=== PATIENT | male | born 1960 | race Caucasian/White ===

== ENCOUNTER 2018-02-23 12:16 | Observation (INO) | payer OTHER ==
[~2018-02-23] VITALS: Ht 182.9 cm; Wt 81.5 kg
[~2018-02-23 12:16] MED LIST: CYCL-36 PO; HYDR-3533 PO; PRED20 PO
[2018-02-23 12:23] VITALS: BP 162/82; PULSE 95; RESP 18; TEMP 98.3; O2SAT 100
[2018-02-23] MEDS ORDERED: KETOROLAC TROMETHAMINE 30 MG/ML (IVP) VIAL IV PUSH ONE (12:45)
[2018-02-23] MEDS ORDERED: SODIUM CHLOR 0.9% 1000 ML INJ 1,000 ML IV ONE ×2 (12:45→14:30)
[2018-02-23] MEDS ORDERED: CLINDAMYCIN INJ 600 MG in SODIUM CHLORIDE 0.9% INJ 100 ML IV ONE (12:45)
[2018-02-23] MEDS ORDERED: DOXYCYCLINE HYCLATE 100 MG CAP PO ONE (12:45)
[2018-02-23] MEDS ORDERED: LEVOFLOXACIN 750 MG PREMIX INJ 150 ML IV ONE (12:45)
[2018-02-23] MEDS ORDERED: CLINDAMYCIN 600 MG/NS PREMIX 50 ML IV ONE (12:45)
--- NOTE | 2018-02-23 12:46 | PD ---
HPI Chief Complaint: Bite or Sting Time Seen by Provider: 12:29 Travel History International Travel<30 days: No Contact w/Intl Traveler<30days: No Traveled to known affect area: No History of Present Illness HPI 57-year-old male presents to the emergency department for evaluation of skin infection to the left ankle/foot. Patient states that on , 4 days ago, he was stung by a stingray the left ankle. He was at the [place]. He states that he immediately put his foot in the salt water to help with the pain. Patient states that it was progressively getting more painful, erythematous, swollen. He does state that he feels slightly better today. He denies any known fevers, but did have a possible fever 2 nights ago. Patient denies any other symptoms or complaints. He has history of chronic back pain. He does not take any prescribed medications. Patient states the pain is 8/10 when he stands up, alleviated with keeping the foot still. Pain is aching and throbbing in nature. Patient states that he went to his primary care physician' s office, Dr. Perez, today and was referred to the emergency department. Moderate severity. [facility] Past Medical History Diminished Hearing: Yes Past Surgical History Appendectomy: Yes ([employer]) Social History Alcohol Use: Yes (2 HIGHBALLS DAILY) Tobacco Use: Yes (1/2 PACK DAILY) Substance Use: Yes Allergies-Medications (Allergen,Severity, Reaction): Coded Allergies: No Known Allergies (Unverified Allergy, Unknown, 02/23/18) Reported Meds & Prescriptions Reported Meds & Active Scripts Active No Active Prescriptions or Reported Medications Review of Systems Except as stated in HPI: all other systems reviewed are Neg Physical Exam Narrative GENERAL: Well-nourished, well-developed male patient, afebrile. SKIN: Focused skin assessment warm/dry. Patient has slight bruising to left lateral ankle with serosanguineous drainage. He has erythema from the ankle to the foot with moderate edema. HEAD: Normocephalic. Atraumatic. EYES: No scleral icterus. No injection or drainage. NECK: Supple, trachea midline. No JVD or lymphadenopathy. CARDIOVASCULAR: Regular rate and rhythm without murmurs, gallops, or rubs. Left pedal pulse is 2+. RESPIRATORY: Breath sounds equal bilaterally. No accessory muscle use. Lungs sounds are clear to auscultation. GASTROINTESTINAL: Abdomen soft, non-tender, nondistended. MUSCULOSKELETAL: No cyanosis, or edema. BACK: Nontender without obvious deformity. No CVA tenderness. Data Data Last Documented VS Vital Signs Date Time Temp Pulse Resp B/P (MAP) Pulse Ox O2 Delivery O2 Flow Rate FiO2 02/23/18 12:23 98.3 95 18 162/82 (108) 100 Orders Orders Ankle, Complete ([id number]) (02/23/18 ) Complete Blood Count With Diff (02/23/18 12:37) Lactic Acid Sepsis Protocol (02/23/18 12:37) Blood Culture (02/23/18 12:37) Iv Access Insert/Monitor (02/23/18 12:37) Basic Metabolic Panel (Bmp) (02/23/18 12:37) Sodium Chlor 0.9% 1000 Ml Inj (Ns 1000 M (02/23/18 12:45) Levofloxacin 750 Mg Premix Inj (Levaquin (02/23/18 12:45) Doxycycline (Vibramycin) (02/23/18 12:45) Wound Culture And Gram Stain (02/23/18 12:37) Ketorolac Inj (Toradol Inj) (02/23/18 12:45) Clindamycin Inj (Cleocin Inj) (02/23/18 12:45) Sodium Chlor 0.9% 1000 Ml Inj (Ns 1000 M (02/23/18 14:30) Acetamin-Hydrocod 325-5 Mg (Gratiot 5-325 (02/23/18 14:30) Potassium Chloride (Kcl) (02/23/18 14:30) Magnesium (Mg) (02/23/18 14:32) Hepatic Functional Panel (02/23/18 14:32) Neuro Checks Q4H (02/23/18 14:32) Alcohol Withdrawal Asmt-Ciwa Q4HX18 (02/23/18 14:32) ^ Seizure Precautions (02/23/18 14:32) Leather Tooler / Telemetry BLANCA.Q8H (02/23/18 14:32) Diet Regular Basic (02/23/18 Dinner) Folic Acid (Folate) (02/24/18 09:00) Thiamine (Vit B1) (Vitamin B1) (02/24/18 09:00) Multivitamins-Minerals Therap (Theragran (02/24/18 09:00) Flumazenil Inj (Romazicon Inj) (02/23/18 14:45) Lorazepam (Ativan) (02/23/18 14:45) Lorazepam Inj (Ativan Inj) (02/23/18 14:45) Lorazepam (Ativan) (02/23/18 14:45) Lorazepam Inj (Ativan Inj) (02/23/18 14:45) Lorazepam Inj (Ativan Inj) (02/23/18 14:45) Lorazepam Inj (Ativan Inj) (02/23/18 14:45) Haloperidol Inj (Haldol Inj) (02/23/18 14:45) Heparin Inj (Heparin Inj) (02/23/18 14:45) Scd Bilateral/Knee High BLANCA.BID (02/23/18 14:32) Admit Order (Ed Use Only) (02/23/18 14:38) Labs Laboratory Tests Test 02/23/18 13:05 White Blood Count 10.2 TH/MM3 Red Blood Count 4.46 MIL/MM3 Hemoglobin 16.0 GM/DL Hematocrit 46.5 % Mean Corpuscular Volume 104.3 FL Mean Corpuscular Hemoglobin 35.9 PG Mean Corpuscular Hemoglobin Concent 34.4 % Red Cell Distribution Width 14.5 % Platelet Count 277 TH/MM3 Mean Platelet Volume 8.7 FL Neutrophils (%) (Auto) 62.5 % Lymphocytes (%) (Auto) 24.0 % Monocytes (%) (Auto) 9.7 % Eosinophils (%) (Auto) 3.3 % Basophils (%) (Auto) 0.5 % Neutrophils # (Auto) 6.4 TH/MM3 Lymphocytes # (Auto) 2.4 TH/MM3 Monocytes # (Auto) 1.0 TH/MM3 Eosinophils # (Auto) 0.3 TH/MM3 Basophils # (Auto) 0.0 TH/MM3 CBC Comment DIFF FINAL Differential Comment Blood Urea Nitrogen 10 MG/DL Creatinine 0.84 MG/DL Random Glucose 147 MG/DL Calcium Level 9.2 MG/DL Sodium Level 140 MEQ/L Potassium Level 3.2 MEQ/L Chloride Level 105 MEQ/L Carbon Dioxide Level 23.9 MEQ/L Anion Gap 11 MEQ/L Estimat Glomerular Filtration Rate 95 ML/MIN Lactic Acid Level 2.6 mmol/L MDM Medical Decision Making Medical Screen Exam Complete: Yes Emergency Medical Condition: Yes Medical Record Reviewed: Yes Interpretation(s) Last Impressions Ankle X-Ray 02/23/18 0000 Signed Impressions: Service Date/Time: Friday, February 23, 2018 13:32 - CONCLUSION: 1. Soft tissue swelling. 2. No fracture or radiopaque foreign body. Samuel Preciado MD Differential Diagnosis Cellulitis versus abscess versus foreign body versus sepsis Narrative Course 57-year-old male presents to the emergency department for evaluation of skin infection to the left ankle and foot this started after a sting ray sting 4 days ago. IV access established. CBC, BMP, lactic acid, blood cultures 2 are ordered and pending. Wound culture is taken. Patient is given normal saline 1 L IV bolus, clindamycin 600 mg IV, Levaquin 750 mg IV, doxycycline 100 mg by mouth. X-ray of the left ankle is ordered and pending. CBC shows no acute abnormality. BMP shows hypokalemia of 3.2. Lactic acid is 2.6. X-ray shows soft tissue swelling, no radiopaque foreign body. Patient is given a second liter normal saline IV bolus. Upon reexamination, the patient is moaning in pain. He is given Gratiot 5/325 mg for pain. Patient is given potassium 40 mEq by mouth for hypokalemia. [facility] is paged for admission. Dr. Hurley accepted admission. Diagnosis Primary Impression: Cellulitis of right ankle Additional Impression: Lactic acid acidosis Admitting Information Admitting Physician Requests: Observation Scripts No Active Prescriptions or Reported Meds Rasheeda Crook Feb 23, 2018 12:46
[2018-02-23 13:32] LABS: AUTOMATED NEUTROPHIL # 6.4 TH/MM3 (1.8-7.7); BASOPHIL % 0.5 % (0.0-2.0); EOSINOPHIL # 0.3 TH/MM3 (0-0.4); EOSINOPHIL % 3.3 % (0.0-4.0); HEMATOCRIT 46.5 % (39.0-51.0); LYMPHOCYTE # 2.4 TH/MM3 (1.0-4.8); MEAN CELL VOLUME 104.3 FL (80.0-100.0); MEAN CORPUSCULAR HEMOGLOBIN 35.9 PG (27.0-34.0); MEAN CORPUSCULAR HGB CONC 34.4 % (32.0-36.0); MEAN PLATELET VOLUME 8.7 FL (7.0-11.0); MONO % 9.7 % (0.0-8.0); NEUT % 62.5 % (16.0-70.0); PLATELET COUNT 277 TH/MM3 (150-450); RED BLOOD COUNT 4.46 MIL/MM3 (4.50-5.90); RED CELL DISTRIBUTION WIDTH 14.5 % (11.6-17.2); WHITE BLOOD COUNT 10.2 TH/MM3 (4.0-11.0)
--- NOTE | 2018-02-23 13:43 | RADRPT ---
EXAM DATE/TIME: 02/23/2018 13:32 [facility] COMPARISON: No previous studies available for comparison. INDICATIONS : Foreign body. Patient states a stingray brushed up against him. left ankle swelling and pain. MEDICAL HISTORY : None. SURGICAL HISTORY : None. ENCOUNTER: Initial ACUITY: 4 - 6 days PAIN SCORE: 10/10 LOCATION: Left ankle. FINDINGS: Three view exam was performed of the left ankle. The bony structures are in normal alignment. No ev idence of fracture or dislocation. There is some soft tissue swelling about the ankle, particularly a round the lateral malleolus. No radiopaque foreign body. The ankle mortise is intact. A Bony minera lization is normal. CONCLUSION: 1. Soft tissue swelling. 2. No fracture or radiopaque foreign body. Samuel Preciado MD on February 23, 2018 at 13:38 Board Certified Radiologist. This report was verified electronically.
[2018-02-23 13:51] LABS: LACTIC ACID SEPSIS PROTOCOL 2.6 mmol/L (0.4-2.0)
[2018-02-23 14:01] LABS: BICARBONATE 23.9 MEQ/L (21.0-32.0); CALCIUM 9.2 MG/DL (8.5-10.1); CREATININE 0.84 MG/DL (0.60-1.30)
[2018-02-23] MEDS ORDERED: ACETAMINOPHEN/HYDROcodone 325 MG/5 MG TAB PO ONE (14:30)
[2018-02-23] MEDS ORDERED: POTASSIUM CHLORIDE 20 MEQ CONTROLLED RELEASE TAB PO ONE (14:30)
[2018-02-23] MEDS ORDERED: LACTATED RINGER'S 1000 ML INJ 1,000 ML IV SCH (14:39)
[2018-02-23] MEDS ORDERED: LORazepam 1 MG TAB PO PRN (14:45)
[2018-02-23] MEDS ORDERED: NALOXONE HCL 0.4 MG/ML AMP IV PUSH PRN (14:45)
[2018-02-23] MEDS ORDERED: LORazepam 2 MG TAB PO PRN (14:45)
[2018-02-23] MEDS ORDERED: SODIUM CHLORIDE 0.9% FLUSH 10 ML FLUSH IV FLUSH PRN (14:45)
[2018-02-23] MEDS ORDERED: LORazepam 2 MG/ML VIAL IV PUSH PRN ×4 (14:45)
[2018-02-23] MEDS ORDERED: ACETAMINOPHEN 325 MG TAB PO PRN ×2 (14:45)
[2018-02-23] MEDS ORDERED: LACTULOSE SYRUP 20 GM/30 ML CUP PO PRN (14:45)
[2018-02-23] MEDS ORDERED: HALOPERIDOL LACTATE 5 MG/ML AMP IM PRN (14:45)
[2018-02-23] MEDS ORDERED: BISACODYL 10 MG SUPP RECTAL PRN (14:45)
[2018-02-23] MEDS ORDERED: IBUPROFEN 600 MG TAB PO PRN (14:45)
[2018-02-23] MEDS ORDERED: KETOROLAC TROMETHAMINE 30 MG/ML (IVP) VIAL IV PUSH PRN (14:45)
[2018-02-23] MEDS ORDERED: HEPARIN SODIUM - SQ 10,000 UNITS/ML VIAL SQ SCH (14:45)
[2018-02-23] MEDS ORDERED: MORPHINE SULFATE 2 MG/ML SYRINGE IV PUSH PRN (14:45)
[2018-02-23] MEDS ORDERED: MAGNESIUM HYDROXIDE SUSP 30 ML CUP PO PRN (14:45)
[2018-02-23] MEDS ORDERED: IBUPROFEN 400 MG TAB PO PRN (14:45)
[2018-02-23] MEDS ORDERED: SENNOSIDES 8.6 MG TAB PO PRN (14:45)
[2018-02-23] MEDS ORDERED: ONDANSETRON HCL 4 MG/2 ML VIAL IVP PRN (14:45)
[2018-02-23] MEDS ORDERED: FLUMAZENIL 0.5 MG/5 ML VIAL IV PUSH PRN (14:45)
[2018-02-23 15:44] LABS: ALBUMIN 3.1 GM/DL (3.4-5.0); DIRECT BILIRUBIN ADULT 0.2 MG/DL (0.0-0.2)
[2018-02-23 15:46] LABS: INDIRECT BILIRUBIN 0.5 MG/DL (0.0-0.8); TOTAL BILIRUBIN ADULT 0.7 MG/DL (0.2-1.0); TOTAL PROTEIN 7.8 GM/DL (6.4-8.2)
[2018-02-23] MEDS ORDERED: SODIUM CHLORIDE 0.9% FLUSH 10 ML FLUSH IV FLUSH SCH (21:00)
[2018-02-23] MEDS ORDERED: DOCUSATE SODIUM 50 MG/SENNA 8.6 MG TAB PO SCH (21:00)
[2018-02-24] MEDS ORDERED: THIAMINE HCL 100 MG TAB PO SCH (09:00)
[2018-02-24] MEDS ORDERED: FOLIC ACID 1 MG TAB PO SCH (09:00)
[2018-02-24] MEDS ORDERED: MULTIVITAMINS/MINERALS THERAPEUTIC TAB PO SCH (09:00)
--- NOTE | 2018-02-25 14:55 | PD.AMA ---
Against Medical Advice Note Discharge Disposition: Against Medical Advice AMA Statement Patient Tao Almazan has decided to leave the hospital against medical advice. This patient has the capacity to refuse care and understands the risks of leaving, including permanent disability and/or , and has had an opportunity to ask questions about his condition. The patient has been informed that he may return for care at any time, and follow up has been arranged/ advised. Momo Hurley MD Feb 25, 2018 14:55
== END 2018-02-23 15:51 | disposition left against medical advice (07) ==
LOC: NEPC 12:16 → NEDA 14:39
PROVIDERS: ADMIT Internal Medicine; ATTEND Internal Medicine
DX: L03.115 Cellulitis of right lower limb (principal); B96.89 Other specified bacterial agents as the cause of diseases classified elsewhere; E87.2 Acidosis; E87.6 Hypokalemia; H91.90 Unspecified hearing loss, unspecified ear; Z72.0 Tobacco use
CPT/HCPCS: 73610; 80048; 80076; 83605; 83735; 85025; 87040; 87070; 87077; 87186; 87205; 96361; 96374; 99285; G0378; J1885; J1956; J7030; 86403

== ENCOUNTER 2018-03-10 16:52 | Inpatient (IN) | payer OTHER ==
[~2018-03-10] VITALS: Ht 182.9 cm; Wt 86.5 kg
[2018-03-10 16:55] VITALS: BP 129/74; PULSE 107; RESP 24; TEMP 97.8; O2SAT 98
[2018-03-10] MEDS ORDERED: VANCOMYCIN INJ 1,000 MG in SODIUM CHLOR 0.9% 250 ML INJ 250 ML IV ONE (17:15)
[2018-03-10] MEDS ORDERED: SODIUM CHLOR 0.9% 1000 ML INJ 1,000 ML IV ONE (17:15)
[2018-03-10] MEDS ORDERED: LEVOFLOXACIN 750 MG PREMIX INJ 150 ML IV ONE (17:15)
[2018-03-10] MEDS ORDERED: ONDANSETRON HCL 4 MG/2 ML VIAL IV PUSH ONE (17:15)
[2018-03-10] MEDS ORDERED: MORPHINE SULFATE 4 MG/ML INJ IV PUSH ONE (17:15)
[2018-03-10] MEDS ORDERED: SODIUM CHLOR 0.9% 1000 ML INJ 1,000 ML IV SCH (17:15)
--- NOTE | 2018-03-10 17:24 | PD ---
HPI Chief Complaint: Skin Problem Time Seen by Provider: 17:00 Travel History International Travel<30 days: No Contact w/Intl Traveler<30days: No Traveled to known affect area: No History of Present Illness HPI 57 years old male complained of pain and swelling of left foot and left leg. Patient states that he was stung by stingray to left ankle about 3 weeks ago. Patient was seen in emergency room 4 days after that on February 23, 2018 and was given Levaquin 750 mg IV, doxycycline 100 mg p.o, clindamycin 600 mg IV. Patient was advised to be admitted for further treatment. Patient signed out AMA. Patient states that the pain and swelling got better with antibiotics and get worse and then. Patient states that he has increasing redness swelling and tenderness started on the left foot with radiation to the left ankle and the left lower leg. Patient denies any fever chills. Patient states the pain is sharp severe pain. Patient states the pain is worse with weightbearing. On a scale of 1-10 the pain is a 10. PFSH Past Medical History Diminished Hearing: Yes Musculoskeletal: Yes (CHRONIC BACK PAIN CHRONIC SCIATIC NERVE PAIN) ?: Not Past Surgical History Appendectomy: Yes Other Surgery: Yes (PLASTIC FACIAL SURGERY) Social History Alcohol Use: Yes (3-4 DRINKS 5 DAYS WEEKLY) Tobacco Use: Yes (1/2 PACK DAILY) Substance Use: No Allergies-Medications (Allergen,Severity, Reaction): Coded Allergies: No Known Allergies (Unverified Allergy, Unknown, 03/10/18) Reported Meds & Prescriptions Reported Meds & Active Scripts Active No Active Prescriptions or Reported Medications Review of Systems General / Constitutional: No: Fever Eyes: No: Visual changes HENT: No: Headaches Cardiovascular: No: Chest Pain or Discomfort Respiratory: No: Shortness of Breath Gastrointestinal: No: Abdominal Pain Genitourinary: No: Dysuria Musculoskeletal: Positive: Edema, Pain Skin: No Rash Neurologic: No: Weakness Psychiatric: No: Depression Endocrine: No: Polydipsia Hematologic/Lymphatic: No: Easy Bruising Physical Exam Narrative GENERAL: Well-nourished, well-developed patient. SKIN: Focused skin assessment warm/dry. HEAD: Normocephalic. EYES: No scleral icterus. No injection or drainage. NECK: Supple, trachea midline. No JVD or lymphadenopathy. CARDIOVASCULAR: Regular rate and rhythm without murmurs, gallops, or rubs. RESPIRATORY: Breath sounds equal bilaterally. No accessory muscle use. GASTROINTESTINAL: Abdomen soft, non-tender, nondistended. MUSCULOSKELETAL: Patient has redness swelling tenderness diffuse over the left foot with extended to the left ankle. Patient has moderate tenderness to palpation of left lower leg. No induration noted. No discharge. An eschar with an ulcer lesion anterior aspect the left ankle. No drainage noted. BACK: Nontender without obvious deformity. No CVA tenderness. Neurologic exam normal. Data Data Last Documented VS Vital Signs Date Time Temp Pulse Resp B/P (MAP) Pulse Ox O2 Delivery O2 Flow Rate FiO2 03/10/18 16:55 97.8 107 24 129/74 (92) 98 Orders Orders Complete Blood Count With Diff (03/10/18 17:07) Comprehensive Metabolic Panel (03/10/18 17:07) Prothrombin Time / Inr (Pt) (03/10/18 17:07) Act Partial Throm Time (Ptt) (03/10/18 17:07) Blood Culture (03/10/18 17:07) Iv Access Insert/Monitor (03/10/18 17:07) Ecg Monitoring (03/10/18 17:07) Oximetry (03/10/18 17:07) Sodium Chlor 0.9% 1000 Ml Inj (Ns 1000 M (03/10/18 17:15) Sodium Chlor 0.9% 1000 Ml Inj (Ns 1000 M (03/10/18 17:15) Morphine Inj (Morphine Inj) (03/10/18 17:15) Ondansetron Inj (Zofran Inj) (03/10/18 17:15) Vancomycin Inj (Vancomycin Inj) (03/10/18 17:15) Levofloxacin 750 Mg Premix Inj (Levaquin (03/10/18 17:15) Foot, Complete (Eva2esw) (03/10/18 17:12) Tibia/Fibula (Ap/Lat) (03/10/18 17:12) Mri Foot W&W/O Contrast (03/10/18 ) Labs Laboratory Tests Test 03/10/18 17:15 White Blood Count 10.0 TH/MM3 Red Blood Count 4.46 MIL/MM3 Hemoglobin 16.0 GM/DL Hematocrit 47.3 % Mean Corpuscular Volume 106.2 FL Mean Corpuscular Hemoglobin 35.8 PG Mean Corpuscular Hemoglobin Concent 33.7 % Red Cell Distribution Width 15.0 % Platelet Count 284 TH/MM3 Mean Platelet Volume 8.8 FL Neutrophils (%) (Auto) 55.7 % Lymphocytes (%) (Auto) 29.6 % Monocytes (%) (Auto) 12.2 % Eosinophils (%) (Auto) 1.7 % Basophils (%) (Auto) 0.8 % Neutrophils # (Auto) 5.6 TH/MM3 Lymphocytes # (Auto) 3.0 TH/MM3 Monocytes # (Auto) 1.2 TH/MM3 Eosinophils # (Auto) 0.2 TH/MM3 Basophils # (Auto) 0.1 TH/MM3 CBC Comment DIFF FINAL Differential Comment Prothrombin Time 10.7 SEC Prothromb Time International Ratio 1.1 RATIO Activated Partial Thromboplast Time 25.9 SEC Blood Urea Nitrogen 6 MG/DL Creatinine 0.90 MG/DL Random Glucose 79 MG/DL Total Protein 7.6 GM/DL Albumin 3.7 GM/DL Calcium Level 8.8 MG/DL Alkaline Phosphatase 125 U/L Aspartate Amino Transf (AST/SGOT) 24 U/L Alanine Aminotransferase (ALT/SGPT) 27 U/L Total Bilirubin 0.6 MG/DL Sodium Level 140 MEQ/L Potassium Level 3.8 MEQ/L Chloride Level 103 MEQ/L Carbon Dioxide Level 24.4 MEQ/L Anion Gap 13 MEQ/L Estimat Glomerular Filtration Rate 87 ML/MIN [facility] Medical Decision Making Medical Screen Exam Complete: Yes Emergency Medical Condition: Yes Interpretation(s) 1940 6 PM. CBC WBC 10.0. Hemoglobin 16.0 hematocrit 47.3. MCV 106.2. CMP within normal limits. Last Impressions Tibia/Fibula X-Ray 03/10/181711 Signed Impressions: Service Date/Time: Saturday, March 10, 2018 17:34 - CONCLUSION: Soft tissue swelling, negative for fracture or foreign body. Dayo Weiss MD FACR Foot X-Ray 03/10/181711 Signed Impressions: Service Date/Time: Saturday, March 10, 2018 17:30 - CONCLUSION: No acute bony findings. No foreign body. Deion Paul MD Differential Diagnosis Differential diagnosis including cellulitis, abscess, osteomyelitis, septic joint. Narrative Course 57 years old male with increasing redness swelling tenderness left foot left ankle with extension to left lower leg. Status post stent by stingray 3 weeks ago. Normal saline solution 1 L IV bolus. Normal saline solution 125 cc an hour. Morphine 2 mg IV. Zofran 4 mg IV. Vancomycin 1 g IV. Levaquin 750 mg IV. Diagnosis Primary Impression: Cellulitis of left foot Additional Impression: Left leg cellulitis Admitting Information Admitting Physician Requests: Admit Scripts No Active Prescriptions or Reported Meds Russell Junior MD March 10, 2018 17:24
--- NOTE | 2018-03-10 17:47 | RADRPT ---
EXAM DATE/TIME: 03/10/2018 17:34 [facility] COMPARISON: No previous studies available for comparison. INDICATIONS : Left lower leg pain after being stung by a stingray. MEDICAL HISTORY : None. SURGICAL HISTORY : None. ENCOUNTER: Initial ACUITY: 3 weeks PAIN SCORE: 6/10 LOCATION: Left distal lower leg. FINDINGS: Marked soft tissue swelling centered about the ankle without fracture or radiopaque foreign body. CONCLUSION: Soft tissue swelling, negative for fracture or foreign body. Dayo Weiss MD FACR on March 10, 2018 at 17:44 Board Certified Radiologist. This report was verified electronically.
--- NOTE | 2018-03-10 17:47 | RADRPT ---
EXAM DATE/TIME: 03/10/2018 17:30 [facility] COMPARISON: No previous studies available for comparison. INDICATIONS : Left foot pain after being stung by a stingray. MEDICAL HISTORY : None. SURGICAL HISTORY : None. ENCOUNTER: Initial ACUITY: 3 weeks PAIN SCORE: 6/10 LOCATION: Left foot. FINDINGS: Three view examination of the left foot demonstrates prominent soft tissue swelling. No foreign body, dislocation, or fracture. The tarsal bones appear intact. The interphalangeal and metatarsophalan geal joints are intact. The calcaneus is intact. Bony mineralization is normal. CONCLUSION: No acute bony findings. No foreign body. Deion Paul MD on March 10, 2018 at 17:43 Board Certified Radiologist. This report was verified electronically.
[2018-03-10 18:06] LABS: AUTOMATED NEUTROPHIL # 5.6 TH/MM3 (1.8-7.7); BASOPHIL # 0.1 TH/MM3 (0-0.2); BASOPHIL % 0.8 % (0.0-2.0); EOSINOPHIL # 0.2 TH/MM3 (0-0.4); EOSINOPHIL % 1.7 % (0.0-4.0); HEMATOCRIT 47.3 % (39.0-51.0); LYMPH % 29.6 % (9.0-44.0); MEAN CELL VOLUME 106.2 FL (80.0-100.0); MEAN CORPUSCULAR HEMOGLOBIN 35.8 PG (27.0-34.0); MEAN CORPUSCULAR HGB CONC 33.7 % (32.0-36.0); MEAN PLATELET VOLUME 8.8 FL (7.0-11.0); MONO % 12.2 % (0.0-8.0); MONOCYTE # 1.2 TH/MM3 (0-0.9); NEUT % 55.7 % (16.0-70.0); PLATELET COUNT 284 TH/MM3 (150-450); RED BLOOD COUNT 4.46 MIL/MM3 (4.50-5.90)
[2018-03-10 18:19] LABS: INTERNATIONAL NORMALIZED RATIO 1.1 RATIO; PROTHROMBIN TIME - PATIENT 10.7 SEC (9.8-11.6)
[2018-03-10 18:20] LABS: ALBUMIN 3.7 GM/DL (3.4-5.0); AST (GOT) 24 U/L (15-37); BICARBONATE 24.4 MEQ/L (21.0-32.0); BLOOD UREA NITROGEN 6 MG/DL (7-18); CALCIUM 8.8 MG/DL (8.5-10.1); CHLORIDE 103 MEQ/L (98-107); GLOMERULAR FILTRATION RATE 87 ML/MIN (>89); GLUCOSE,RANDOM 79 MG/DL (74-106); SODIUM (NA) 140 MEQ/L (136-145)
[2018-03-10 18:21] LABS: ALT (GPT) 27 U/L (12-78)
[2018-03-10 18:23] LABS: ALKALINE PHOSPHATASE 125 U/L (45-117); TOTAL BILIRUBIN ADULT 0.6 MG/DL (0.2-1.0); TOTAL PROTEIN 7.6 GM/DL (6.4-8.2)
--- NOTE | 2018-03-10 20:17 | HHI.HP ---
[facility] Service Family Medicine Primary Care Physician Wing Parker M.D. Admission Diagnosis Left foot cellulitis. Left leg cellulitis. Diagnoses: International Travel<30 Days: No Contact w/Intl Traveler<30days: No Known Affected Area: No History of Present Illness 57-year-old male with history of chronic low back pain presenting for a wound to the left lower extremity sustained by stingray in sea water on 02/23. At that time, he came into the ER was admitted for antibiotic treatment. He was given IV antibiotics including Levaquin, doxycycline, and vancomycin, and wound cultures were obtained. However, he left AGAINST MEDICAL ADVICE. Initially, the wound got better, however the pain recurred and over the last 2 days he has noticed increased redness and swelling in addition to the pain in his left ankle. There has been mild drainage of purulent material from the wound. He has not had any fever or chills for the last several days. (Alexandre Dasilva MD R2) Review of Systems Constitutional: DENIES: Fever, Chills Endocrine: DENIES: Heat/cold intolerance Eyes: DENIES: Blurred vision, Vision loss Ears, nose, mouth, throat: DENIES: Throat pain, Running Nose Respiratory: DENIES: Cough, Shortness of breath Cardiovascular: COMPLAINS OF: Lower Extremity Edema (L leg only), DENIES: Chest pain, Palpitations Gastrointestinal: DENIES: Abdominal pain, Constipation, Diarrhea, Nausea, Vomiting Musculoskeletal: COMPLAINS OF: Muscle aches, DENIES: Joint Swelling Integumentary: COMPLAINS OF: Rash Hematologic/lymphatic: DENIES: Bruising Immunologic/allergic: DENIES: Eczema Neurologic: DENIES: Headache, Seizures Psychiatric: DENIES: Anxiety, Confusion, Depression (Alexandre Dasilva MD R2) Past Family Social History Past Medical History Chronic low back pain, ?herniated disc Past Surgical History Appendectomy Reported Medications Aleve / ibuprofen as needed (Alxeandre Dasilva MD R2) Allergies: Coded Allergies: No Known Allergies (Unverified Allergy, Unknown, 03/10/18) Active Ordered Medications Current Medications Medications (Trade) Dose Ordered Sig/Delaney Route Start Time Stop Time Status Last Admin Sodium Chloride 1,000 ml @ 100 mls/hr Q10H IV 03/10/18 21:00 03/10/18 22:32 (NS Flush) 2 ml UNSCH PRN IV FLUSH 03/10/18 20:45 03/10/18 22:33 (NS Flush) 2 ml BID IV FLUSH 03/10/18 21:00 (Lovenox Inj) 40 mg Q24H SQ 03/10/18 21:00 (Webster 5-325 Mg) 1 tab Q4H PRN PO 03/10/18 20:45 (Webster 10-325 Mg) 1 tab Q4H PRN PO 03/10/18 20:45 03/10/18 22:34 (Narcan Inj) 0.4 mg UNSCH PRN IV PUSH 03/10/18 20:45 (Oxana-Colace) 1 tab BID PO 03/10/18 21:00 (Milk Of Magnesia Liq) 30 ml Q12H PRN PO 03/10/18 20:45 (Senokot) 17.2 mg Q12H PRN PO 03/10/18 20:45 (Dulcolax Supp) 10 mg DAILY PRN RECTAL 03/10/18 20:45 (Lactulose Liq) 30 ml DAILY PRN PO 03/10/18 20:45 (Romazicon Inj) 0.2 mg Q1M PRN IV PUSH 03/10/18 20:45 (Ativan) 1 mg Q4H PRN PO 03/10/18 20:45 (Ativan Inj) 1 mg Q4H PRN IV PUSH 03/10/18 20:45 (Ativan) 2 mg Q2H PRN PO 03/10/18 20:45 (Ativan Inj) 2 mg Q2H PRN IV PUSH 03/10/18 20:45 (Ativan Inj) 2 mg Q1H PRN IV PUSH 03/10/18 20:45 (Ativan Inj) 2 mg Q15M PRN IV PUSH 03/10/18 20:45 Pharmacy Profile Note 0 ml @ 0 mls/hr UNSCH OTHER 03/10/18 20:45 (Theragran) 1 tab DAILY PO 03/11/18 09:00 Levofloxacin/ Dextrose 150 ml @ 100 mls/hr Q24H IV 03/11/18 17:00 Doxycycline Hyclate 100 mg/ Sodium Chloride 100 ml @ 100 mls/hr Q12H IV 03/10/18 22:00 03/10/18 22:32 Vancomycin HCl 1000 mg/Sodium Chloride 250 ml @ 250 mls/hr Q12H IV 03/11/18 08:00 ([facility] Ordered Lab Info) SPECIFIC LAB TO BE ... ONCE ONCE .XX 03/12/18 07:45 03/12/18 07:46 (Brandon) 10 mg HS PRN PO 03/10/18 23:00 Family History Father and mother - healthy, of natural causes Social History On disability Lives at home with PCP is Dr. Parker Tob - 1/2 PPD 40 years Alc - "couple drinks every night" = bourbon and coke (~ 2 oz per day) Drugs - None (Alexandre Dasilva MD R2) Physical Exam Vital Signs Vital Signs Date Time Temp Pulse Resp B/P (MAP) Pulse Ox O2 Delivery O2 Flow Rate FiO2 03/10/18 16:55 97.8 107 24 129/74 (92) 98 Physical Exam GENERAL: Well-developed, well-nourished, mildly overweight adult white male sitting up in bed appearing uncomfortable but in no acute distress SKIN: Approximately 3 x 3 cm ulcerating wound of the left lateral ankle with surrounding erythema and desquamation. Ulcer with overlying scab and granulation tissue, minimal purulent material. Appears clean. HEAD: NC/AT EYES: PERRL. EOMI. No conjunctival injection or drainage. ENT: MMM, OP without erythema, tonsillar swelling, or exudate. NECK: Supple, no lymphadenopathy. No JVD. CARDIOVASCULAR: NRRR. Normal S1/S2. No MRG RESPIRATORY: CTAB. No crackles or wheezes. GASTROINTESTINAL: Abdomen soft, non-distended, non-tender. No hepato- splenomegaly or palpable masses. MUSCULOSKELETAL: 1+ nonpitting edema left lower extremity up to mid worrell. NEUROLOGICAL: Awake and alert. Cranial nerves II through XII grossly intact. Moves all extremities without difficulty. Sensation intact over dermatomes of the left lower extremity. Normal speech. Laboratory Laboratory Tests Test 03/10/18 17:15 White Blood Count 10.0 Red Blood Count 4.46 Hemoglobin 16.0 Hematocrit 47.3 Mean Corpuscular Volume 106.2 Mean Corpuscular Hemoglobin 35.8 Mean Corpuscular Hemoglobin Concent 33.7 Red Cell Distribution Width 15.0 Platelet Count 284 Mean Platelet Volume 8.8 Neutrophils (%) (Auto) 55.7 Lymphocytes (%) (Auto) 29.6 Monocytes (%) (Auto) 12.2 Eosinophils (%) (Auto) 1.7 Basophils (%) (Auto) 0.8 Neutrophils # (Auto) 5.6 Lymphocytes # (Auto) 3.0 Monocytes # (Auto) 1.2 Eosinophils # (Auto) 0.2 Basophils # (Auto) 0.1 CBC Comment DIFF FINAL Differential Comment Prothrombin Time 10.7 Prothromb Time International Ratio 1.1 Activated Partial Thromboplast Time 25.9 Blood Urea Nitrogen 6 Creatinine 0.90 Random Glucose 79 Total Protein 7.6 Albumin 3.7 Calcium Level 8.8 Alkaline Phosphatase 125 Aspartate Amino Transf (AST/SGOT) 24 Alanine Aminotransferase (ALT/SGPT) 27 Total Bilirubin 0.6 Sodium Level 140 Potassium Level 3.8 Chloride Level 103 Carbon Dioxide Level 24.4 Anion Gap 13 Estimat Glomerular Filtration Rate 87 Date/Time Source Procedure Growth Status 03/10/18 17:05 Blood Peripheral Aerobic Blood Culture Pending Received 03/10/18 17:05 Blood Peripheral Anaerobic Blood Culture Pending Received (Alexandre Dasilva MD R2) Result Diagram: 03/10/18 1715 03/10/18 1715 Imaging Last Impressions Tibia/Fibula X-Ray 03/10/18 171 Signed Impressions: Service Date/Time: Saturday, March 10, 2018 17:34 - CONCLUSION: Soft tissue swelling, negative for fracture or foreign body. Dayo Weiss MD FACR Foot X-Ray 03/10/181711 Signed Impressions: Service Date/Time: Saturday, March 10, 2018 17:30 - CONCLUSION: No acute bony findings. No foreign body. Deion Paul MD Foot MRI 03/10/18 0000 Signed Impressions: Service Date/Time: Saturday, March 10, 2018 19:07 - CONCLUSION: 1. The bony structures are intact with normal signal. 2. Edema with an elongated focal superficial fluid collection at the anterolateral ankle region superficial to the extensor tendons. Given the patient's history, an abscess needs to be considered. Deion Arteaga MD (Alexandre Dasilva MD R2) Caprini VTE Risk Assessment Caprini VTE Risk Assessment: Mod/High Risk (score >= 2) (Alexandre Dasilva MD R2) Assessment and Plan Assessment and Plan 57-year-old male with chronic low back pain presenting with: (Alexandre Dasilva MD R2) Attending Attestation THIS CASE WAS DISCUSSED WITH THE RESIDENT PHYSICIAN. I HAVE REVIEWED THE RECORD AND AGREE WITH THE ABOVE NOTE AND PLAN OF CARE WAS DISCUSSED. I HAVE AUTHORIZED THE ORDER FOR PLACEMENT IN OUT-PATIENT OBSERVATION STATUS. (Moon Rowland MD) Problem List: (1) Cellulitis of left foot ICD Codes: L03.116 - Cellulitis of left lower limb Status: Acute Plan: Ulcerating wound caused by contact of the stingray in seawater source Wound culture from previous hospital visit growing Hafnia alvei and Photobacterium damselae (aka Vibrio damselae) Blood culture from previous hospital visit without growth Clinically stable, no evidence of sepsis MRI showing possible abscess Foot x-ray and MRI not suggestive of osteomyelitis -Check lactic acid -Repeat blood culture -Repeat wound culture -Broad-spectrum antibiotic coverage to include vibrio coverage -Vancomycin dosed per pharmacy -Levaquin 750 mg IV daily -Doxycycline 100 mg IV every 12 hours -Consult infectious disease recommendation on length of treatment -Consult podiatry for likely debridement or drainage of abscess if a pocket develops after antibiotic therapy -Consult wound care nurse for patient education, dressing recommendation -Pain control with Webster as needed (2) Toxic effect of contact with stingray, accidental (unintentional), subsequent encounter ICD Codes: T63.511D - Toxic effect of contact with stingray, accidental ( unintentional), subsequent encounter Status: Acute Plan: See above plan (3) Macrocytosis without anemia ICD Codes: D75.89 - Other specified diseases of blood and blood-forming organs Plan: Likely chronic and related to alcohol use -Check B12 and Folate -Multivitamin daily (4) Alcohol use ICD Codes: Z78.9 - Other specified health status Plan: Chronic, possibly heavier than patient originally notes given macrocytosis -CIWA protocol (5) Chronic low back pain without sciatica ICD Codes: M54.5 - Low back pain; G89.29 - Other chronic pain Status: Chronic Plan: Chronic back pain without sciatica, patient reports taking opiates left over from a dental issue as well as obtaining some from some of his neighbors who had them left over from their own medical issues -Webster as above for his active foot wound -Follow-up with PCP (6) FEN/PPX Plan: Fluids: Normal saline at 100 cc/h Electrolytes: Monitor and replace PRN Nutrition: Diet regular basic DVT: Lovenox 40 mg SQ daily CODE STATUS: Patient elects to be no code DNR Dispo: Pending clinical course, possible procedural intervention dw Dr. Junior (Alexandre Dasilva MD R2) Problem Qualifiers (1) Chronic low back pain without sciatica: Qualified Codes: M54.5 - Low back pain; G89.29 - Other chronic pain Alexandre Dasilva MD R2 March 10, 2018 20:17 Moon Rowland MD March 11, 2018 12:04
--- NOTE | 2018-03-10 20:37 | RADRPT ---
EXAM DATE/TIME: 03/10/2018 19:07 [place] COMPARISON: No previous studies available for comparison. INDICATIONS : Osteomyelitis. CONTRAST: 15 cc Omniscan (gadodiamide) IV MEDICAL HISTORY : Osteomyelitis. SURGICAL HISTORY : Appendectomy. ENCOUNTER: Initial ACUITY: 1 day PAIN SCORE: 0/10 LOCATION: Left foot TECHNIQUE: Multiplanar, multisequence MRI examination was performed without contrast and after the intravenous a dministration of gadolinium. FINDINGS: BONE/CARTILAGE: Bone marrow signal is homogeneous. Articular cartilage signal is within normal limits. TENDONS: All of the visualized tendons are intact. MISCELLANEOUS: There appears to be a superficial focal fluid collection at the anterior lateral ankle region superfi cial to the extensor tendons measuring approximately 3.2 x 1.1 x 4.1 cm. There is superficial edema e specially at the anterior lateral subcutaneous tissues. Plantar aponeurosis is intact. Sinus tarsi i s within normal limits. CONCLUSION: 1. The bony structures are intact with normal signal. 2. Edema with an elongated focal superficial fluid collection at the anterolateral ankle region super ficial to the extensor tendons. Given the patient's history, an abscess needs to be considered. Deion Arteaga MD on March 10, 2018 at 20:30 Board Certified Radiologist. This report was verified electronically.
[2018-03-10] MEDS ORDERED: LORazepam 2 MG TAB PO PRN (20:45)
[2018-03-10] MEDS ORDERED: NALOXONE HCL 0.4 MG/ML AMP IV PUSH PRN (20:45)
[2018-03-10] MEDS ORDERED: LORazepam 2 MG/ML VIAL IV PUSH PRN ×4 (20:45)
[2018-03-10] MEDS ORDERED: FLUMAZENIL 0.5 MG/5 ML VIAL IV PUSH PRN (20:45)
[2018-03-10] MEDS ORDERED: BISACODYL 10 MG SUPP RECTAL PRN (20:45)
[2018-03-10] MEDS ORDERED: ACETAMINOPHEN/HYDROcodone 325 MG/5 MG TAB PO PRN (20:45)
[2018-03-10] MEDS ORDERED: Vancomycin Consult Pharmacy 1 EA OTHER SCH (20:45)
[2018-03-10] MEDS ORDERED: LORazepam 1 MG TAB PO PRN (20:45)
[2018-03-10] MEDS ORDERED: MAGNESIUM HYDROXIDE SUSP 30 ML CUP PO PRN (20:45)
[2018-03-10] MEDS ORDERED: SODIUM CHLORIDE 0.9% FLUSH 10 ML FLUSH IV FLUSH PRN (20:45)
[2018-03-10] MEDS ORDERED: SENNOSIDES 8.6 MG TAB PO PRN (20:45)
[2018-03-10] MEDS ORDERED: LACTULOSE SYRUP 20 GM/30 ML CUP PO PRN (20:45)
[2018-03-10] MEDS: SODIUM CHLORIDE 0.9% FLUSH 10 ML FLUSH IV FLUSH SCH (21:00)
[2018-03-10] MEDS ORDERED: DOXYCYCLINE HYCLATE 100 MG TAB PO SCH (21:00)
[2018-03-10] MEDS ORDERED: GADODIAMIDE PF 287 MG/ML 20 ML VIAL (for RAD MRI) IVCONTRAST ONE (21:28)
[2018-03-10 21:38] LABS: FOLATE 2.6 NG/ML (3.1-17.5)
[2018-03-10 22:03] VITALS: BP 167/100; PULSE 90; RESP 16; TEMP 98.7; O2SAT 95
[2018-03-10] MEDS: DOXYCYCLINE INJ 100 MG in SODIUM CHLORIDE 0.9% INJ 100 ML IV SCH (22:32)
[2018-03-10] MEDS: DOCUSATE SODIUM 50 MG/SENNA 8.6 MG TAB PO SCH (22:32)
[2018-03-10] MEDS: SODIUM CHLOR 0.9% 1000 ML INJ 1,000 ML IV SCH (22:32)
[2018-03-10] MEDS: ENOXAPARIN SODIUM 40 MG/0.4 ML SYRINGE SQ SCH (22:33)
[2018-03-10] MEDS: ACETAMINOPHEN/HYDROcodone 325 MG/10 MG TAB PO PRN (22:34)
[2018-03-10] MEDS ORDERED: ZOLPIDEM TARTRATE 10 MG TAB PO PRN (23:00)
[2018-03-11 00:22] VITALS: BP 139/71; PULSE 85; RESP 16; TEMP 98.4; O2SAT 95
[2018-03-11 04:33] VITALS: BP 145/80; PULSE 83; RESP 16; TEMP 98.2; O2SAT 96
[2018-03-11 07:17] LABS: BASOPHIL # 0.1 TH/MM3 (0-0.2); BASOPHIL % 0.5 % (0.0-2.0); EOSINOPHIL # 0.3 TH/MM3 (0-0.4); EOSINOPHIL % 3.2 % (0.0-4.0); HEMATOCRIT 41.7 % (39.0-51.0); HEMOGLOBIN 14.1 GM/DL (13.0-17.0); LYMPH % 30.6 % (9.0-44.0); MEAN CELL VOLUME 106.8 FL (80.0-100.0); MEAN CORPUSCULAR HEMOGLOBIN 36.1 PG (27.0-34.0); MEAN CORPUSCULAR HGB CONC 33.8 % (32.0-36.0); MEAN PLATELET VOLUME 8.4 FL (7.0-11.0); MONO % 13.5 % (0.0-8.0); MONOCYTE # 1.3 TH/MM3 (0-0.9); NEUT % 52.2 % (16.0-70.0); PLATELET COUNT 225 TH/MM3 (150-450); WHITE BLOOD COUNT 9.7 TH/MM3 (4.0-11.0)
[2018-03-11 07:45] LABS: BICARBONATE 25.3 MEQ/L (21.0-32.0)
[2018-03-11] MEDS: SODIUM CHLOR 0.9% 1000 ML INJ 1,000 ML IV SCH ×2 (08:24→17:00)
[2018-03-11] MEDS: SODIUM CHLORIDE 0.9% FLUSH 10 ML FLUSH IV FLUSH SCH ×2 (08:24→20:06)
[2018-03-11] MEDS: DOCUSATE SODIUM 50 MG/SENNA 8.6 MG TAB PO SCH ×2 (08:24→20:06)
[2018-03-11] MEDS: VANCOMYCIN 1,000 MG/NS 250 ML IV SCH ×4 (08:24→20:07)
[2018-03-11] MEDS: MULTIVITAMIN TAB PO SCH (08:25)
[2018-03-11 08:41] VITALS: BP 159/97; PULSE 79; RESP 16; TEMP 98.9; O2SAT 98
[2018-03-11] MEDS: DOXYCYCLINE INJ 100 MG in SODIUM CHLORIDE 0.9% INJ 100 ML IV SCH (10:36)
[2018-03-11] MEDS: ACETAMINOPHEN/HYDROcodone 325 MG/10 MG TAB PO PRN ×2 (14:20→20:06)
--- NOTE | 2018-03-11 14:27 | HHI.FPPN ---
Addendum to progress note ADDENDUM Reason for addendum: Additonal documentation Additional information Please see resident H/P for further documentation of the history. Patient admitted for left foot and leg cellulitis following stingray wound. Was previously in the hospital on IV abx and left AMA and has come back as the woudn has worsened. He states the wound is painful, he states it is draining at home, the edema in the leg is now into the calf and not just localized to the foot. Denies fevers/chills/ Denies CP, SOB, [place] or GI complaints. Last Impressions Tibia/Fibula X-Ray 03/10/181711 Signed Impressions: Service Date/Time: Saturday, March 10, 2018 17:34 - CONCLUSION: Soft tissue swelling, negative for fracture or foreign body. Dayo Weiss MD FACR Foot X-Ray 03/10/181711 Signed Impressions: Service Date/Time: Saturday, March 10, 2018 17:30 - CONCLUSION: No acute bony findings. No foreign body. Deion Paul MD Foot MRI 03/10/18 0000 Signed Impressions: Service Date/Time: Thursday, March 10, 2018 19:07 - CONCLUSION: 1. The bony structures are intact with normal signal. 2. Edema with an elongated focal superficial fluid collection at the anterolateral ankle region superficial to the extensor tendons. Given the patient's history, an abscess needs to be considered. Deion Arteaga MD Vital Signs Date Time Temp Pulse Resp B/P (MAP) Pulse Ox O2 Delivery O2 Flow Rate FiO2 03/11/18 08:41 98.9 79 16 159/97 (117) 98 Laboratory Tests Test 03/10/18 17:15 03/10/18 23:45 03/11/18 06:53 White Blood Count 10.0 TH/MM3 9.7 TH/MM3 Red Blood Count 4.46 MIL/MM3 3.90 MIL/MM3 Hemoglobin 16.0 GM/DL 14.1 GM/DL Hematocrit 47.3 % 41.7 % Mean Corpuscular Volume 106.2 FL 106.8 FL Mean Corpuscular Hemoglobin 35.8 PG 36.1 PG Mean Corpuscular Hemoglobin Concent 33.7 % 33.8 % Red Cell Distribution Width 15.0 % 15.0 % Platelet Count 284 TH/MM3 225 TH/MM3 Mean Platelet Volume 8.8 FL 8.4 FL Neutrophils (%) (Auto) 55.7 % 52.2 % Lymphocytes (%) (Auto) 29.6 % 30.6 % Monocytes (%) (Auto) 12.2 % 13.5 % Eosinophils (%) (Auto) 1.7 % 3.2 % Basophils (%) (Auto) 0.8 % 0.5 % Neutrophils # (Auto) 5.6 TH/MM3 5.0 TH/MM3 Lymphocytes # (Auto) 3.0 TH/MM3 3.0 TH/MM3 Monocytes # (Auto) 1.2 TH/MM3 1.3 TH/MM3 Eosinophils # (Auto) 0.2 TH/MM3 0.3 TH/MM3 Basophils # (Auto) 0.1 TH/MM3 0.1 TH/MM3 CBC Comment DIFF FINAL DIFF FINAL Differential Comment Prothrombin Time 10.7 SEC Prothromb Time International Ratio 1.1 RATIO Activated Partial Thromboplast Time 25.9 SEC Blood Urea Nitrogen 6 MG/DL 6 MG/DL Creatinine 0.90 MG/DL 1.00 MG/DL Random Glucose 79 MG/DL 92 MG/DL Total Protein 7.6 GM/DL Albumin 3.7 GM/DL Calcium Level 8.8 MG/DL 8.0 MG/DL Alkaline Phosphatase 125 U/L Aspartate Amino Transf (AST/SGOT) 24 U/L Alanine Aminotransferase (ALT/SGPT) 27 U/L Total Bilirubin 0.6 MG/DL Sodium Level 140 MEQ/L 144 MEQ/L Potassium Level 3.8 MEQ/L 4.1 MEQ/L Chloride Level 103 MEQ/L 109 MEQ/L Carbon Dioxide Level 24.4 MEQ/L 25.3 MEQ/L Anion Gap 13 MEQ/L 10 MEQ/L Estimat Glomerular Filtration Rate 87 ML/MIN 77 ML/MIN Vitamin B12 Level 142 PG/ML Folate 2.6 NG/ML Lactic Acid Level 1.3 mmol/L Current Medications Medications (Trade) Dose Ordered Sig/Delaney Route PRN Reason Start Time Stop Time Status Last Admin Dose Admin Sodium Chloride 1,000 ml @ 125 mls/hr Q8H IV 03/10/18 17:15 03/10/18 20:57 DC 03/10/18 17:20 Sodium Chloride 1,000 ml @ 999 mls/hr BOLUS ONCE IV 03/10/18 17:15 03/10/18 18:15 DC 03/10/18 17:20 Morphine Sulfate (Morphine Inj) 2 mg ONCE ONCE IV PUSH 03/10/18 17:15 03/10/18 17:16 DC 03/10/18 17:19 Ondansetron HCl (Zofran Inj) 4 mg ONCE ONCE IV PUSH 03/10/18 17:15 03/10/18 17:16 DC 03/10/18 17:19 Vancomycin HCl 1000 mg/Sodium Chloride 250 ml @ 250 mls/hr ONCE ONCE IV 03/10/18 17:15 03/10/18 18:14 DC 03/10/18 20:01 Levofloxacin/ Dextrose 150 ml @ 100 mls/hr ONCE ONCE IV 03/10/18 17:15 03/10/18 18:44 DC 03/10/18 17:44 O. CONSTITUTIONAL/GEN: normally nourished, in NAD. EYES: conjunctiva normal, PERRLA, anicteric ENT: Mouth and pharynx normal. NECK: thyroid midline, carotids symmetrical. LUNGS: clear A-P, respiratory effort is normal. CARDIOVASCULAR: RR without murmur or gallop. No significant edema. GI/ABD: soft without masses, without organomegaly. : no CVA tenderness NEURO: No focal deficits. Gait is normal SKIN: color normal, no rashes noted except on the leg/foot -- left ext with edema into the mid worrell, wound with eschar that has some yellow drainage as well , surrounding erythema, and peeling of the skin and warmth and edema --- good cap refill toes, good movement of the ankle and the toes. HEME/LYMPH: no bruising, petechia or significant adenopathy MUSC: back is normal in appearance. Extremities are normal in appearance. PSYCH/MENTAL STATUS: Alert and oriented x 3. ap cellulitis with likely abscess -- cultures from prior admission reviewed. Continue antibiotics and have asked ID to assist with tailoring the antibiotics. Podiatry consult pending for possible wound debridement vs abscess drainage. Unclear ETOH use -CIWA protocol. Patient already has attempted to leave AMA today from this hospitalization. DWPT in detail the severity of his illness and the risk that he has if he leaves AMA and does not receive appropriate care for his wound. He runs the risk of needing amputation or becoming septic with this bacteria. All the patients questions were answered and I do believe that he has an understanding of his illness and the risk of not treating this. We have obtained verbal agreement from the patient to stay and here out the consulted specialists before considering leaving AMA from this hospitalization. Patient seen and dw the resident team -- Dr. Morelos, Dr. Dasilva and Dr. Yudy Rowland,Moon Marrero MD March 11, 2018 14:27
[2018-03-11] MEDS: LEVOFLOXACIN 750 MG PREMIX INJ 150 ML IV SCH (17:00)
[2018-03-11 17:02] VITALS: BP 138/76; PULSE 16; RESP 16; TEMP 98.9; O2SAT 96
--- NOTE | 2018-03-11 18:53 | PD.ID.CON ---
History of Present Illness Service ID Consult Requested By Dr Dasilva Reason for Consult L foot vibrio infection from stingray injury Primary Care Physician Wing Parker M.D. Diagnoses: History of Present Illness 57 yo male with h/o chronic back pain sp stingray sting close to 3 weeks ago. Heis cultures grew out Vbrio damselae and Hafnia Pt reportedly had asome chills fever initiallyafter hte incident that subsided quickly He left AMA w/o any abx and came back for worsening pain aand swelling of the foot. He reports minimal drainage No fever no leukocytosis Past Family Social History Allergies: Coded Allergies: No Known Allergies (Unverified Allergy, Unknown, 03/10/18) Active Ordered Medications Medications where reviewed in EMR Antibiotics Include: vanco levaquine doxycyline Physical Exam Vital Signs Vital Signs Date Time Temp Pulse Resp B/P (MAP) Pulse Ox O2 Delivery O2 Flow Rate FiO2 03/11/18 17:02 98.9 16 16 138/76 (96) 96 03/11/18 15:38 20 03/11/18 08:41 98.9 79 16 159/97 (117) 98 03/11/18 04:33 98.2 83 16 145/80 (101) 96 03/11/18 00:22 98.4 85 16 139/71 (93) 95 03/10/18 22:03 98.7 90 16 167/100 (122) 95 Physical Exam CONSTITUTIONAL/GENERAL: This is an adequately nourished patient, in no apparent distress. TUBES/LINES/DRAINS: SKIN: No jaundice, rashes, or lesions. Skin temperature appropriate. Not diaphoretic. HEAD: Atraumatic. Normocephalic. EYES: Pupils equal and round and reactive. Extraocular motions intact. No scleral icterus. No injection or drainage. Fundi not examined. ENT: Hearing grossly normal. Nose without bleeding or purulent drainage. Throat without visible erythema, exudates, masses, or lesions. CARDIOVASCULAR: Regular rate and rhythm without murmurs, gallops, or rubs. No JVD. Peripheral pulses symmetric. RESPIRATORY/CHEST: Symmetric, unlabored respirations. Clear to auscultation. Breath sounds equal bilaterally. No wheezes, rales, or rhonchi. GASTROINTESTINAL: Abdomen soft, non-tender, nondistended. No hepato-splenomegaly , or palpable masses. No guarding. Bowel sounds present. GENITOURINARY: Without palpable bladder distension. MUSCULOSKELETAL: Extremities without clubbing, cyanosis, or edema. N Swollen , tender ertymetoaus L foot and ank;le with tight edema of the foot and ankle extending to L calf Thigh is not tender or swollen Dorsal foot with a large wound covered with crust, no draiinage LYMPHATICS: No palpable cervical or supraclavicular adenopathy. + L inguinal lymphadenopahty NEUROLOGICAL: Awake and alert. Motor and sensory grossly within normal limits. Follows commands. Cognitively sharp. Moves all extremities. PSYCHIATRIC: No obvious anxiety/depression. no apparent hallucinations or other psychotic thought process. Laboratory Laboratory Tests Test 03/10/18 23:45 03/11/18 06:53 Lactic Acid Level 1.3 White Blood Count 9.7 Red Blood Count 3.90 Hemoglobin 14.1 Hematocrit 41.7 Mean Corpuscular Volume 106.8 Mean Corpuscular Hemoglobin 36.1 Mean Corpuscular Hemoglobin Concent 33.8 Red Cell Distribution Width 15.0 Platelet Count 225 Mean Platelet Volume 8.4 Neutrophils (%) (Auto) 52.2 Lymphocytes (%) (Auto) 30.6 Monocytes (%) (Auto) 13.5 Eosinophils (%) (Auto) 3.2 Basophils (%) (Auto) 0.5 Neutrophils # (Auto) 5.0 Lymphocytes # (Auto) 3.0 Monocytes # (Auto) 1.3 Eosinophils # (Auto) 0.3 Basophils # (Auto) 0.1 CBC Comment DIFF FINAL Differential Comment Blood Urea Nitrogen 6 Creatinine 1.00 Random Glucose 92 Calcium Level 8.0 Sodium Level 144 Potassium Level 4.1 Chloride Level 109 Carbon Dioxide Level 25.3 Anion Gap 10 Estimat Glomerular Filtration Rate 77 Date/Time Source Procedure Growth Status 03/10/18 17:05 Blood Peripheral Aerobic Blood Culture - Preliminary NO GROWTH IN 1 DAY Resulted 03/10/18 17:05 Blood Peripheral Anaerobic Blood Culture - Preliminary NO GROWTH IN 1 DAY Resulted 03/10/18 20:30 Wound Foot Gram Stain - Final Resulted 03/10/18 20:30 Wound Foot Wound Culture - Preliminary Resulted Result Diagram: 03/11/18 0653 03/11/18 0653 Imaging Last Impressions Tibia/Fibula X-Ray 03/10/18 4429 Signed Impressions: Service Date/Time: Saturday, March 10, 2018 17:34 - CONCLUSION: Soft tissue swelling, negative for fracture or foreign body. Dayo Weiss MD FACR Foot X-Ray 03/10/18 1712 Signed Impressions: Service Date/Time: Saturday, March 10, 2018 17:30 - CONCLUSION: No acute bony findings. No foreign body. Deion Paul MD Foot MRI 03/10/18 0000 Signed Impressions: Service Date/Time: Saturday, March 10, 2018 19:07 - CONCLUSION: 1. The bony structures are intact with normal signal. 2. Edema with an elongated focal superficial fluid collection at the anterolateral ankle region superficial to the extensor tendons. Given the patient's history, an abscess needs to be considered. Deion Arteaga MD Assessment and Plan Assessment and Plan Polimicrobial L foot infection, including Vibrio - small abscess present and ascending cellulitis s/p stingray sting cont current abx agree with I+D plan will f/u op clx Monisha Li MD March 11, 2018 18:53
[2018-03-11] MEDS: ENOXAPARIN SODIUM 40 MG/0.4 ML SYRINGE SQ SCH (20:05)
[2018-03-11] MEDS ORDERED: METOCLOPRAMIDE HCL 10 MG/2 ML VIAL IV PUSH PRN (21:00)
[2018-03-11 21:18] VITALS: BP 126/66; PULSE 93; RESP 16; TEMP 98; O2SAT 92
[2018-03-11] MEDS: MORPHINE SULFATE 4 MG/ML INJ IV PRN (21:48)
--- NOTE | 2018-03-11 22:23 | PD.CONS ---
History of Present Illness Service Podiatry foot and ankle surgery Consult Requested By Reason for Consult Left lower extremity cellulitis with worsening infection Primary Care Physician Wing Parker M.D. Diagnoses: History of Present Illness Podiatry consulted for this 57-year-old male with left ankle as sharp and associated swelling of left ankle and leg. Patient states he was stung by a stingray about 3 weeks ago. He was seen in the emergency room 4 days after her original injury on February 23 and was given Levaquin 750 mg IV, doxycycline 100 mg p.o., clindamycin 600 mg IV. Patient at this point signed out AMA. He reports that pain and swelling improved however once his antibiotics were completed it worsened. Patient denies any nausea vomiting fevers or chills. He states he is having severe sharp pain. Wheelchair present bedside as patient is minimally ambulatory secondary to severe chronic back pain. Review of Systems Constitutional: DENIES: Diaphoretic episodes, Fatigue, Fever, Weight gain, Weight loss, Chills, Dizziness, Change in appetite, Night Sweats Cardiovascular: DENIES: Chest pain, Palpitations, Syncope, Dyspnea on Exertion , PND, Lower Extremity Edema, Orthopnea, Claudication Psychiatric: DENIES: Anxiety, Confusion, Mood changes, Depression, Hallucinations, Agitation, Suicidal Ideation, Homicidal Ideation, Delusions Except as stated in HPI: all other systems reviewed are Neg Past Family Social History Allergies: Coded Allergies: No Known Allergies (Unverified Allergy, Unknown, 03/10/18) Past Medical History As reported in HPI Active Ordered Medications Current Medications Medications (Trade) Dose Ordered Sig/Delaney Route Start Time Stop Time Status Last Admin Sodium Chloride 1,000 ml @ 100 mls/hr Q10H IV 03/10/18 21:00 03/11/18 17:00 (NS Flush) 2 ml UNSCH PRN IV FLUSH 03/10/18 20:45 03/10/18 22:33 (NS Flush) 2 ml BID IV FLUSH 03/10/18 21:00 (Lovenox Inj) 40 mg Q24H SQ 03/10/18 21:00 ([place] 5-325 Mg) 1 tab Q4H PRN PO 03/10/18 20:45 ([place] 10-325 Mg) 1 tab Q4H PRN PO 03/10/18 20:45 03/11/18 20:06 (Narcan Inj) 0.4 mg UNSCH PRN IV PUSH 03/10/18 20:45 (Oxana-Colace) 1 tab BID PO 03/10/18 21:00 (Milk Of Magnesia Liq) 30 ml Q12H PRN PO 03/10/18 20:45 (Senokot) 17.2 mg Q12H PRN PO 03/10/18 20:45 (Dulcolax Supp) 10 mg DAILY PRN RECTAL 03/10/18 20:45 (Lactulose Liq) 30 ml DAILY PRN PO 03/10/18 20:45 (Romazicon Inj) 0.2 mg Q1M PRN IV PUSH 03/10/18 20:45 (Ativan) 1 mg Q4H PRN PO 03/10/18 20:45 03/11/18 21:47 (Ativan Inj) 1 mg Q4H PRN IV PUSH 03/10/18 20:45 (Ativan) 2 mg Q2H PRN PO 03/10/18 20:45 (Ativan Inj) 2 mg Q2H PRN IV PUSH 03/10/18 20:45 (Ativan Inj) 2 mg Q1H PRN IV PUSH 03/10/18 20:45 (Ativan Inj) 2 mg Q15M PRN IV PUSH 03/10/18 20:45 Pharmacy Profile Note 0 ml @ 0 mls/hr UNSCH OTHER 03/10/18 20:45 (Theragran) 1 tab DAILY PO 03/11/18 09:00 03/11/18 08:25 Levofloxacin/ Dextrose 150 ml @ 100 mls/hr Q24H IV 03/11/18 17:00 03/11/18 17:00 Doxycycline Hyclate 100 mg/ Sodium Chloride 100 ml @ 100 mls/hr Q12H IV 03/10/18 22:00 03/11/18 10:36 Vancomycin HCl 1000 mg/Sodium Chloride 250 ml @ 250 mls/hr Q12H IV 03/11/18 08:00 03/11/18 20:07 [place] [place] Info[place] SPECIFIC LAB TO BE ... ONCE ONCE .XX 03/12/18 07:45 03/12/18 07:46 (Ambien) 10 mg HS PRN PO 03/10/18 23:00 03/10/18 23:28 (Morphine Inj) 4 mg Q3H PRN IV 03/11/18 21:45 03/11/18 21:48 (Reglan Inj) 10 mg Q6H PRN IV PUSH 03/11/18 21:00 Physical Exam Vital Signs Vital Signs Date Time Temp Pulse Resp B/P (MAP) Pulse Ox O2 Delivery O2 Flow Rate FiO2 03/11/18 21:18 98.0 93 16 126/66 (86) 92 03/11/18 17:02 98.9 16 16 138/76 (96) 96 03/11/18 15:38 20 03/11/18 08:41 98.9 79 16 159/97 (117) 98 03/11/18 04:33 98.2 83 16 145/80 (101) 96 03/11/18 00:22 98.4 85 16 139/71 (93) 95 Physical Exam GENERAL: This is a well-nourished, well-developed patient, in no apparent distress. SKIN: Left lower extremity with increased erythema and edema and eschar noted left lateral anterior ankle HEAD: Atraumatic. EYES: Pupils equal round and reactive. ENT: Airway patent. NECK: Trachea midline. RESPIRATORY: Nonlabored breathing. MUSCULOSKELETAL:. Negative Homans sign bilaterally. NEUROLOGICAL: Awake and alert. Normal speech Lower extremity physical exam: Vascular: Dorsalis pedis nonpalpable, posterior tibial nonpalpable secondary to edema. Capillary refill time within normal limits to digits 5 bilateral foot. Edema present left foot ankle and leg Neuro: Gross sensation intact to bilateral lower extremity. Pinpoint sensation intact. No hyperalgesia noted to bilateral lower extremity Dermatology: Increased edema, erythema, and warmth noted to left lower extremity. Eschar noted to left anterior ankle with no fluctuance, no crepitance noted. No drainage upon inspection of eschar and upon compression. No probe to bone through eschar. Musculoskeletal: Tender to palpation to left lower extremity, localized to anterior lateral ankle. Laboratory Laboratory Tests Test 03/10/18 23:45 03/11/18 06:53 Lactic Acid Level 1.3 White Blood Count 9.7 Red Blood Count 3.90 Hemoglobin 14.1 Hematocrit 41.7 Mean Corpuscular Volume 106.8 Mean Corpuscular Hemoglobin 36.1 Mean Corpuscular Hemoglobin Concent 33.8 Red Cell Distribution Width 15.0 Platelet Count 225 Mean Platelet Volume 8.4 Neutrophils (%) (Auto) 52.2 Lymphocytes (%) (Auto) 30.6 Monocytes (%) (Auto) 13.5 Eosinophils (%) (Auto) 3.2 Basophils (%) (Auto) 0.5 Neutrophils # (Auto) 5.0 Lymphocytes # (Auto) 3.0 Monocytes # (Auto) 1.3 Eosinophils # (Auto) 0.3 Basophils # (Auto) 0.1 CBC Comment DIFF FINAL Differential Comment Blood Urea Nitrogen 6 Creatinine 1.00 Random Glucose 92 Calcium Level 8.0 Sodium Level 144 Potassium Level 4.1 Chloride Level 109 Carbon Dioxide Level 25.3 Anion Gap 10 Estimat Glomerular Filtration Rate 77 Date/Time Source Procedure Growth Status 03/10/18 17:05 Blood Peripheral Aerobic Blood Culture - Preliminary NO GROWTH IN 1 DAY Resulted 03/10/18 17:05 Blood Peripheral Anaerobic Blood Culture - Preliminary NO GROWTH IN 1 DAY Resulted 03/10/18 20:30 Wound Foot Gram Stain - Final Resulted 03/10/18 20:30 Wound Foot Wound Culture - Preliminary Resulted Result Diagram: 03/11/18 0653 03/11/18 0653 Imaging Last Impressions Tibia/Fibula X-Ray 03/10/181711 Signed Impressions: Service Date/Time: Saturday, March 10, 2018 17:34 - CONCLUSION: Soft tissue swelling, negative for fracture or foreign body. Dayo Weiss MD FACR Foot X-Ray 03/10/181711 Signed Impressions: Service Date/Time: Saturday, March 10, 2018 17:30 - CONCLUSION: No acute bony findings. No foreign body. Deion Paul MD Foot MRI 03/10/18 0000 Signed Impressions: Service Date/Time: Saturday, March 10, 2018 19:07 - CONCLUSION: 1. The bony structures are intact with normal signal. 2. Edema with an elongated focal superficial fluid collection at the anterolateral ankle region superficial to the extensor tendons. Given the patient's history, an abscess needs to be considered. Deion Arteaga MD Assessment and Plan Assessment and Plan 57-year-old male with left lower extremity cellulitis and infection secondary to stingray injury, MRI positive for superficial small abscess Patient examined and evaluated all questions answered Discussed bedside incision and drainage with patient Materials will be ordered No fluctuance noted on physical exam We will evaluate for incision and drainage at bedside tomorrow Compression with cast padding and Gerson bandage to left lower extremity recommended Continue IV antibiotics per Miguelina Geiger DPM March 11, 2018 22:23
[2018-03-11] MEDS ORDERED: diphenhydrAMINE HCL 50 MG CAP PO PRN (22:30)
[2018-03-12 00:36] VITALS: BP 124/77; PULSE 87; RESP 16; TEMP 98.3; O2SAT 94
[2018-03-12] MEDS: DOXYCYCLINE INJ 100 MG in SODIUM CHLORIDE 0.9% INJ 100 ML IV SCH ×2 (00:48→10:30)
[2018-03-12] MEDS: SODIUM CHLOR 0.9% 1000 ML INJ 1,000 ML IV SCH ×2 (01:03→13:26)
[2018-03-12] MEDS: ACETAMINOPHEN/HYDROcodone 325 MG/10 MG TAB PO PRN ×2 (01:08→20:40)
[2018-03-12] MEDS: MORPHINE SULFATE 4 MG/ML INJ IV PRN ×2 (02:20→15:55)
[2018-03-12] MEDS ORDERED: LIDOCAINE HCL 1% PF 30 ML VIAL ONE (03:33)
[2018-03-12 04:13] VITALS: BP 116/68; PULSE 91; RESP 16; TEMP 98.4; O2SAT 93
[2018-03-12 06:18] LABS: AUTOMATED NEUTROPHIL # 4.3 TH/MM3 (1.8-7.7); BASOPHIL % 0.5 % (0.0-2.0); EOSINOPHIL # 0.4 TH/MM3 (0-0.4); EOSINOPHIL % 4.3 % (0.0-4.0); HEMATOCRIT 42.7 % (39.0-51.0); HEMOGLOBIN 14.5 GM/DL (13.0-17.0); LYMPH % 29.7 % (9.0-44.0); LYMPHOCYTE # 2.5 TH/MM3 (1.0-4.8); MEAN CELL VOLUME 106.9 FL (80.0-100.0); MEAN CORPUSCULAR HEMOGLOBIN 36.3 PG (27.0-34.0); MEAN PLATELET VOLUME 8.4 FL (7.0-11.0); MONO % 13.7 % (0.0-8.0); MONOCYTE # 1.1 TH/MM3 (0-0.9); NEUT % 51.8 % (16.0-70.0); PLATELET COUNT 243 TH/MM3 (150-450); RED BLOOD COUNT 3.99 MIL/MM3 (4.50-5.90); RED CELL DISTRIBUTION WIDTH 15.2 % (11.6-17.2); WHITE BLOOD COUNT 8.3 TH/MM3 (4.0-11.0)
[2018-03-12 06:43] LABS: BICARBONATE 24.8 MEQ/L (21.0-32.0); CALCIUM 8.2 MG/DL (8.5-10.1); CREATININE 0.91 MG/DL (0.60-1.30)
--- NOTE | 2018-03-12 07:11 | PD.WCN.NOT ---
Wound Consult Description: Consult for wound management of left foot and ankle per Vidya ESPOSITO R2 Communicated with: RN Recommendation: Please refer to Podiatry for dressings post bedside debridement Additional Information: Patient not seen for consult of left foot and ankle. Podiatry has been consulted for the same wounds. Please refer to Podiatry for dressings and orders. Kanchan Carney [facility] March 12, 2018 07:11
[2018-03-12] MEDS ORDERED: PHARMACY ORDERED LAB ONE (07:45)
[2018-03-12] MEDS: SODIUM CHLORIDE 0.9% FLUSH 10 ML FLUSH IV FLUSH SCH ×2 (08:05→20:39)
[2018-03-12] MEDS: MULTIVITAMIN TAB PO SCH (08:05)
[2018-03-12] MEDS: DOCUSATE SODIUM 50 MG/SENNA 8.6 MG TAB PO SCH ×2 (08:05→20:39)
[2018-03-12] MEDS: VANCOMYCIN 1,000 MG/NS 250 ML IV SCH ×2 (08:08)
[2018-03-12 09:21] VITALS: BP 155/89; PULSE 89; RESP 20; TEMP 98.2; O2SAT 95
--- NOTE | 2018-03-12 10:04 | HHI.FPPN ---
Subjective Remarks No acute events overnight. Had some increased L leg swelling, pain improved. Tolerating diet. No CP/SOB. (Alexandre Dasilva MD R2) Objective Vitals Vital Signs Date Time Temp Pulse Resp B/P (MAP) Pulse Ox O2 Delivery O2 Flow Rate FiO2 03/12/18 09:21 98.2 89 20 155/89 (111) 95 03/12/18 04:13 98.4 91 16 116/68 (84) 93 03/12/18 00:36 98.3 87 16 124/77 (93) 94 03/11/18 21:18 98.0 93 16 126/66 (86) 92 03/11/18 17:02 98.9 16 16 138/76 (96) 96 03/11/18 15:38 20 I/O 03/11/18 03/11/18 03/11/18 03/12/18 03/12/18 03/12/18 07:00 15:00 23:00 07:00 15:00 23:00 Intake Total 720 ml Balance 720 ml Intake Oral 720 ml # Voids 3 (Alexandre Dasilva MD R2) Result Diagram: 03/12/18 0533 03/12/18 0533 Imaging Last Impressions Tibia/Fibula X-Ray 03/10/181711 Signed Impressions: Service Date/Time: Saturday, March 10, 2018 17:34 - CONCLUSION: Soft tissue swelling, negative for fracture or foreign body. Dayo Weiss MD FACR Foot X-Ray 03/10/181711 Signed Impressions: Service Date/Time: Saturday, March 10, 2018 17:30 - CONCLUSION: No acute bony findings. No foreign body. Deion Paul MD Foot MRI 03/10/18 0000 Signed Impressions: Service Date/Time: Saturday, March 10, 2018 19:07 - CONCLUSION: 1. The bony structures are intact with normal signal. 2. Edema with an elongated focal superficial fluid collection at the anterolateral ankle region superficial to the extensor tendons. Given the patient's history, an abscess needs to be considered. Deion Arteaga MD Objective Remarks GEN: WDWN overweight adult white male sitting up in bed eating breakfast, NAD SKIN: Approximately 3 x 3 cm and 1x1 ulcerating wounds of the left lateral ankle with surrounding erythema and improved desquamation. Ulcer with overlying scab and granulation tissue, minimal purulent material. Appears clean. CARDIOVASCULAR: NRRR. Normal S1/S2. No MRG RESPIRATORY: CTAB. No crackles or wheezes. GASTROINTESTINAL: Abdomen soft, non-distended, non-tender. MUSCULOSKELETAL: 1+ nonpitting edema left lower extremity up to knee level. NEUROLOGICAL: Awake and alert. Cranial nerves II through XII grossly intact. Moves all extremities without difficulty. Sensation intact over dermatomes of the left lower extremity. Normal speech. Medications and IVs Current Medications Medications (Trade) Dose Ordered Sig/Delaney Route Start Time Stop Time Status Last Admin Sodium Chloride 1,000 ml @ 100 mls/hr Q10H IV 03/10/18 21:00 03/12/18 01:03 (NS Flush) 2 ml UNSCH PRN IV FLUSH 03/10/18 20:45 03/10/18 22:33 (NS Flush) 2 ml BID IV FLUSH 03/10/18 21:00 (Lovenox Inj) 40 mg Q24H SQ 03/10/18 21:00 ([place] 5-325 Mg) 1 tab Q4H PRN PO 03/10/18 20:45 ([place] 10-325 Mg) 1 tab Q4H PRN PO 03/10/18 20:45 03/12/18 01:08 (Narcan Inj) 0.4 mg UNSCH PRN IV PUSH 03/10/18 20:45 (Oxana-Colace) 1 tab BID PO 03/10/18 21:00 (Milk Of Magnesia Liq) 30 ml Q12H PRN PO 03/10/18 20:45 (Senokot) 17.2 mg Q12H PRN PO 03/10/18 20:45 (Dulcolax Supp) 10 mg DAILY PRN RECTAL 03/10/18 20:45 (Lactulose Liq) 30 ml DAILY PRN PO 03/10/18 20:45 (Romazicon Inj) 0.2 mg Q1M PRN IV PUSH 03/10/18 20:45 (Ativan) 1 mg Q4H PRN PO 03/10/18 20:45 03/11/18 21:47 (Ativan Inj) 1 mg Q4H PRN IV PUSH 03/10/18 20:45 (Ativan) 2 mg Q2H PRN PO 03/10/18 20:45 (Ativan Inj) 2 mg Q2H PRN IV PUSH 03/10/18 20:45 (Ativan Inj) 2 mg Q1H PRN IV PUSH 03/10/18 20:45 (Ativan Inj) 2 mg Q15M PRN IV PUSH 03/10/18 20:45 Pharmacy Profile Note 0 ml @ 0 mls/hr UNSCH OTHER 03/10/18 20:45 (Theragran) 1 tab DAILY PO 03/11/18 09:00 03/12/18 08:05 Levofloxacin/ Dextrose 150 ml @ 100 mls/hr Q24H IV 03/11/18 17:00 03/11/18 17:00 Doxycycline Hyclate 100 mg/ Sodium Chloride 100 ml @ 100 mls/hr Q12H IV 03/10/18 22:00 03/12/18 00:48 Vancomycin HCl 1000 mg/Sodium Chloride 250 ml @ 250 mls/hr Q12H IV 03/11/18 08:00 03/12/18 08:08 (Morphine Inj) 4 mg Q3H PRN IV 03/11/18 21:45 03/12/18 02:20 (Reglan Inj) 10 mg Q6H PRN IV PUSH 03/11/18 21:00 (Benadryl) 50 mg HS PRN PO 03/11/18 22:30 03/12/18 01:02 (Alexandre Dasilva MD R2) A/P Assessment and Plan 57-year-old male with chronic low back pain presenting with: (Alexandre Dasilva MD R2) Attending Attestation Patient seen and examined. Case reviewed and discussed with the resident team. Agree with plan of care as discussed with me and documented in the resident note. (Moon Rowland MD) Problem List: (1) Cellulitis of left foot ICD Codes: L03.116 - Cellulitis of left lower limb Status: Acute Plan: Ulcerating wound caused by contact of the stingray in seawater source, improving on antibiotic therapy Wound culture from previous hospital visit growing Hafnia alvei and Photobacterium damselae (aka Vibrio damselae) Blood culture from previous hospital visit without growth Clinically stable, no evidence of sepsis MRI showing possible abscess Foot x-ray and MRI not suggestive of osteomyelitis Wound Cx NGTD BCx NGTD -Broad-spectrum antibiotic coverage to include vibrio coverage -Vancomycin dosed per pharmacy -Levaquin 750 mg IV daily -Doxycycline 100 mg IV every 12 hours -Consult infectious disease, recs appreciated -Continue antibiotics as noted above -F/u cultures to be obtained at time of debridement -Consult podiatry, appreciate recs -To evaluate for bedside debridement today AM -Consult wound care nurse, appreciate recs -To follow up after debridement -Pain control with Cylinder as needed (2) Toxic effect of contact with stingray, accidental (unintentional), subsequent encounter ICD Codes: T63.511D - Toxic effect of contact with stingray, accidental ( unintentional), subsequent encounter Status: Acute Plan: See above plan (3) Macrocytosis without anemia ICD Codes: D75.89 - Other specified diseases of blood and blood-forming organs Plan: Likely chronic and related to alcohol use Folate and B12 both slightly low -Continue Multivitamin daily (4) Alcohol use ICD Codes: Z78.9 - Other specified health status Plan: Chronic, possibly heavier than patient originally notes given macrocytosis CIWA scores 0 all day, higher last night due to trouble sleeping and discomfort -Discontinue CIWA today if scores remaining low (5) Chronic low back pain without sciatica ICD Codes: M54.5 - Low back pain; G89.29 - Other chronic pain Status: Chronic Plan: Chronic back pain without sciatica, patient reports taking opiates left over from a dental issue as well as obtaining some from some of his neighbors who had them left over from their own medical issues -Cylinder as above for his active foot wound -Follow-up with PCP (6) FEN/PPX Plan: Fluids: Normal saline at 100 cc/h Electrolytes: Monitor and replace PRN Nutrition: Diet regular basic DVT: Lovenox 40 mg SQ daily CODE STATUS: Patient elects to be no code DNR Dispo: Pending clinical course, possible procedural intervention (Alexandre Dasilva MD R2) Problem Qualifiers (1) Chronic low back pain without sciatica: Qualified Codes: M54.5 - Low back pain; G89.29 - Other chronic pain Alexandre Dasilva MD R2 March 12, 2018 10:04 Moon Rowland MD March 12, 2018 13:38
[2018-03-12 12:14] VITALS: BP 138/88; PULSE 99; RESP 20; TEMP 97.7; O2SAT 95
[2018-03-12 15:23] VITALS: BP 159/87; PULSE 93; RESP 20; TEMP 98.8; O2SAT 95
[2018-03-12] MEDS ORDERED: MORPHINE SULFATE 4 MG/ML INJ IV PUSH ONE (16:00)
--- NOTE | 2018-03-12 16:29 | PD.POD ---
Subjective Podiatric Problems Left ankle abscess, currently well pain controlled. Pt denying any n/v/f/h/c/ sob. Pain score: 3 Past Med/Surg/Social History Social History Smoking Status: Current Every Day Smoker Objective Vital Signs Vital Signs Date Time Temp Pulse Resp B/P (MAP) Pulse Ox O2 Delivery O2 Flow Rate FiO2 03/12/18 16:05 18 03/12/18 15:23 98.8 93 20 159/87 (111) 95 03/12/18 12:14 97.7 99 20 138/88 (105) 95 03/12/18 09:21 98.2 89 20 155/89 (111) 95 03/12/18 04:13 98.4 91 16 116/68 (84) 93 03/12/18 00:36 98.3 87 16 124/77 (93) 94 03/11/18 21:18 98.0 93 16 126/66 (86) 92 03/11/18 17:02 98.9 16 16 138/76 (96) 96 Coded Allergies: No Known Allergies (Unverified Allergy, Unknown, 03/10/18) Exam-Podiatry Remarks Left anterior ankle erythema with central eschar 2cm x 2cm x 0 with surround fluctuance. Tenderness with compression. Palpable pulse. + edema to foot and leg. Copious amounts of purulent and serous drainage noted during procedure. Assessment & Plan A/P 1)s/p bedside I&D 03/12/18 -daily packing changes -deep cxs obtain to guide outpt abx selection -cont iv abx -will monitor pt closely and follow resolution of infection Procedures Left leg was prepped with chlorhexadine and a proper time out was performed. 12mL of 1%lidocaine plain was injected just proximal to the abscess area. A small stab incision was created and probed with a hemostat. Approximately 20mL of serous and purulent drainage was expelled from the incision site and cultures were obtained. 1/2 sterile packing was placed inside the wound and proper bandaging was applied. The patient tolerated the procedure and the anesthetic well. Manuela Mathias DPM March 12, 2018 16:29
[2018-03-12] MEDS: LEVOFLOXACIN 750 MG PREMIX INJ 150 ML IV SCH (17:29)
[2018-03-12] MEDS ORDERED: VANCOMYCIN INJ 1,250 MG in SODIUM CHLOR 0.9% 250 ML INJ 250 ML IV SCH (18:00)
--- NOTE | 2018-03-12 18:21 | HHI.IDPN ---
Subjective Subjective Remarks co pain no fever wound clx growing GNB Antibiotics vanco levaquine doxy Allergies: Coded Allergies: No Known Allergies (Unverified Allergy, Unknown, 03/10/18) Objective . Vital Signs Date Time Temp Pulse Resp B/P (MAP) Pulse Ox O2 Delivery O2 Flow Rate FiO2 03/12/18 16:05 18 03/12/18 15:23 98.8 93 20 159/87 (111) 95 03/12/18 12:14 97.7 99 20 138/88 (105) 95 03/12/18 09:21 98.2 89 20 155/89 (111) 95 03/12/18 04:13 98.4 91 16 116/68 (84) 93 03/12/18 00:36 98.3 87 16 124/77 (93) 94 03/11/18 21:18 98.0 93 16 126/66 (86) 92 03/12/18 03/12/18 03/13/18 15:00 23:00 07:00 Intake Total 250 ml Balance 250 ml IV Total 250 ml . Laboratory Tests Test 03/11/18 06:53 03/12/18 05:33 White Blood Count 9.7 TH/MM3 8.3 TH/MM3 Red Blood Count 3.90 MIL/MM3 3.99 MIL/MM3 Hemoglobin 14.1 GM/DL 14.5 GM/DL Hematocrit 41.7 % 42.7 % Mean Corpuscular Volume 106.8 FL 106.9 FL Mean Corpuscular Hemoglobin 36.1 PG 36.3 PG Mean Corpuscular Hemoglobin Concent 33.8 % 34.0 % Red Cell Distribution Width 15.0 % 15.2 % Platelet Count 225 TH/MM3 243 TH/MM3 Mean Platelet Volume 8.4 FL 8.4 FL Neutrophils (%) (Auto) 52.2 % 51.8 % Lymphocytes (%) (Auto) 30.6 % 29.7 % Monocytes (%) (Auto) 13.5 % 13.7 % Eosinophils (%) (Auto) 3.2 % 4.3 % Basophils (%) (Auto) 0.5 % 0.5 % Neutrophils # (Auto) 5.0 TH/MM3 4.3 TH/MM3 Lymphocytes # (Auto) 3.0 TH/MM3 2.5 TH/MM3 Monocytes # (Auto) 1.3 TH/MM3 1.1 TH/MM3 Eosinophils # (Auto) 0.3 TH/MM3 0.4 TH/MM3 Basophils # (Auto) 0.1 TH/MM3 0.0 TH/MM3 CBC Comment DIFF FINAL DIFF FINAL Differential Comment Laboratory Tests Test 03/10/18 23:45 03/11/18 06:53 03/12/18 05:33 Lactic Acid Level 1.3 mmol/L Blood Urea Nitrogen 6 MG/DL 5 MG/DL Creatinine 1.00 MG/DL 0.91 MG/DL Random Glucose 92 MG/DL 91 MG/DL Calcium Level 8.0 MG/DL 8.2 MG/DL Sodium Level 144 MEQ/L 145 MEQ/L Potassium Level 4.1 MEQ/L 4.4 MEQ/L Chloride Level 109 MEQ/L 109 MEQ/L Carbon Dioxide Level 25.3 MEQ/L 24.8 MEQ/L Anion Gap 10 MEQ/L 11 MEQ/L Estimat Glomerular Filtration Rate 77 ML/MIN 86 ML/MIN Microbiology Date/Time Source Procedure Growth Status 03/10/18 17:05 Blood Peripheral Aerobic Blood Culture - Preliminary NO GROWTH IN 2 DAYS Resulted 03/10/18 17:05 Blood Peripheral Anaerobic Blood Culture - Preliminary NO GROWTH IN 2 DAYS Resulted 03/10/18 17:05 Blood Peripheral Aerobic Blood Culture - Preliminary NO GROWTH IN 2 DAYS Resulted 03/10/18 17:05 Blood Peripheral Anaerobic Blood Culture - Preliminary NO GROWTH IN 2 DAYS Resulted 03/12/18 16:00 Wound Ankle Acid Fast Stain Pending Received 03/12/18 16:00 Wound Ankle Mycobacterial Culture Pending Received 03/10/18 20:30 Wound Foot Gram Stain - Final Resulted 03/10/18 20:30 Wound Culture - Preliminary Gram Negative Leonardo Resulted Imaging Last Impressions Tibia/Fibula X-Ray 03/10/181711 Signed Impressions: Service Date/Time: Saturday, March 10, 2018 17:34 - CONCLUSION: Soft tissue swelling, negative for fracture or foreign body. Dayo Weiss MD FACR Foot X-Ray 03/10/181711 Signed Impressions: Service Date/Time: Saturday, March 10, 2018 17:30 - CONCLUSION: No acute bony findings. No foreign body. Deion Paul MD Foot MRI 03/10/18 0000 Signed Impressions: Service Date/Time: Saturday, March 10, 2018 19:07 - CONCLUSION: 1. The bony structures are intact with normal signal. 2. Edema with an elongated focal superficial fluid collection at the anterolateral ankle region superficial to the extensor tendons. Given the patient's history, an abscess needs to be considered. Deion Arteaga MD Physical Exam CONSTITUTIONAL/GENERAL: This is an adequately nourished patient, in no apparent distress. TUBES/LINES/DRAINS: SKIN: No jaundice, rashes, or lesions. Skin temperature appropriate. Not diaphoretic. MUSCULOSKELETAL: Extremities without clubbing, cyanosis, or edema. N L foot dressing in place annkle, lower leg edematous and erythematous NEUROLOGICAL: Awake and alert. Non focal PSYCHIATRIC: No obvious anxiety/depression. no apparent hallucinations or other psychotic thought process. Assessment & Plan Remarks Polimicrobial L foot infection, including Vibrio - small abscess present and ascending cellulitis - sp I+D by podiatris : 20 cc of pus expelled s/p stingray sting cont current abx dc vancomycin will f/u op clx Monisha Li MD March 12, 2018 18:21
[2018-03-12 20:00] VITALS: BP 210/114; PULSE 93; RESP 16; TEMP 98.3; O2SAT 95
[2018-03-12] MEDS: ENOXAPARIN SODIUM 40 MG/0.4 ML SYRINGE SQ SCH (20:49)
[2018-03-13] VITALS: BP 156/96; PULSE 99; RESP 16; TEMP 98; O2SAT 93
[2018-03-13] MEDS: DOXYCYCLINE INJ 100 MG in SODIUM CHLORIDE 0.9% INJ 100 ML IV SCH ×3 (00:40→10:00)
[2018-03-13] MEDS: SODIUM CHLOR 0.9% 1000 ML INJ 1,000 ML IV SCH ×3 (00:40→18:32)
[2018-03-13] MEDS: ACETAMINOPHEN/HYDROcodone 325 MG/10 MG TAB PO PRN ×4 (05:38→18:32)
[2018-03-13 07:30] LABS: BASOPHIL % 0.3 % (0.0-2.0); EOSINOPHIL # 0.4 TH/MM3 (0-0.4); HEMATOCRIT 45.5 % (39.0-51.0); HEMOGLOBIN 15.4 GM/DL (13.0-17.0); LYMPH % 15.7 % (9.0-44.0); LYMPHOCYTE # 1.6 TH/MM3 (1.0-4.8); MEAN CELL VOLUME 107.2 FL (80.0-100.0); MEAN CORPUSCULAR HEMOGLOBIN 36.4 PG (27.0-34.0); MEAN PLATELET VOLUME 8.6 FL (7.0-11.0); MONO % 11.4 % (0.0-8.0); MONOCYTE # 1.2 TH/MM3 (0-0.9); NEUT % 68.6 % (16.0-70.0); PLATELET COUNT 246 TH/MM3 (150-450); RED BLOOD COUNT 4.24 MIL/MM3 (4.50-5.90); RED CELL DISTRIBUTION WIDTH 15.4 % (11.6-17.2); WHITE BLOOD COUNT 10.2 TH/MM3 (4.0-11.0)
[2018-03-13 08:00] VITALS: BP 153/90; PULSE 94; RESP 20; TEMP 98.6; O2SAT 94
[2018-03-13] MEDS: SODIUM CHLORIDE 0.9% FLUSH 10 ML FLUSH IV FLUSH SCH ×2 (09:00→21:06)
[2018-03-13 09:06] LABS: BICARBONATE 25.2 MEQ/L (21.0-32.0); BLOOD UREA NITROGEN 10 MG/DL (7-18); CHLORIDE 104 MEQ/L (98-107); CREATININE 0.97 MG/DL (0.60-1.30); GLOMERULAR FILTRATION RATE 80 ML/MIN (>89); GLUCOSE,RANDOM 101 MG/DL (74-106); SODIUM (NA) 140 MEQ/L (136-145)
[2018-03-13] MEDS: DOCUSATE SODIUM 50 MG/SENNA 8.6 MG TAB PO SCH ×2 (09:28→21:06)
[2018-03-13] MEDS: MULTIVITAMIN TAB PO SCH (09:28)
--- NOTE | 2018-03-13 09:34 | HHI.FPPN ---
Subjective Remarks Patient seen and examined at bedside. pt states he feel uncomfortable in the hospital and would like to go home. Pt with elevated BP overnight 24hr range 138 -210/87-114. Denies CP or SOB. also with c/o of lower back pain and sciatic pain. Foot pain is well controlled. (Henry Morelos MD, R1) Objective Vitals Vital Signs Date Time Temp Pulse Resp B/P (MAP) Pulse Ox O2 Delivery O2 Flow Rate FiO2 03/13/18 00:00 98.0 99 16 156/96 (116) 93 03/12/18 20:00 98.3 93 16 210/114 (146) 95 03/12/18 16:05 18 03/12/18 15:23 98.8 93 20 159/87 (111) 95 03/12/18 12:14 97.7 99 20 138/88 (105) 95 I/O 03/12/18 03/12/18 03/12/18 03/13/18 03/13/18 03/13/18 07:00 15:00 23:00 07:00 15:00 23:00 Intake Total 720 ml 250 ml Output Total 350 ml Balance 720 ml 250 ml -350 ml Intake Oral 720 ml IV Total 250 ml Output Urine Total 350 ml (Henry Morelos MD, R1) Result Diagram: 03/13/1844103/13/18441 Objective Remarks GEN: WDWN overweight adult white male sitting up in bed eating breakfast, NAD SKIN: cool and dry CARDIOVASCULAR: NRRR. Normal S1/S2. No MRG RESPIRATORY: CTAB. No crackles or wheezes. GASTROINTESTINAL: Abdomen soft, non-distended, non-tender. positive BS MUSCULOSKELETAL:Left foot wrapped in dressing, c/d/i. Pt able to move Left toes , Left toes well perfused. NEUROLOGICAL: Awake and alert. Cranial nerves II through XII grossly intact. Moves all extremities without difficulty. Sensation intact over dermatomes of the left lower extremity. Normal speech. (Henry Morelos MD, R1) A/P Assessment and Plan 57-year-old male with chronic low back pain presenting with: Discharge Planning Pending results of wound culture taken during I&D (Henry Morelos MD, R1) Attending Attestation Patient seen and examined. Case reviewed and discussed with the resident team. Agree with plan of care as discussed with me and documented in the resident note. (Moon Rowland MD) Problem List: (1) Cellulitis of left foot ICD Codes: L03.116 - Cellulitis of left lower limb Status: Acute Plan: Ulcerating wound caused by contact of the stingray in seawater source, improving on antibiotic therapy Wound culture from previous hospital visit growing Hafnia alvei and Photobacterium damselae (aka Vibrio damselae) Blood culture from previous hospital visit without growth Clinically stable, no evidence of sepsis MRI showing possible abscess Foot x-ray and MRI not suggestive of osteomyelitis Wound Cx gram negative obinna BCx NGTD -Broad-spectrum antibiotic coverage to include vibrio coverage -Levaquin 750 mg IV daily -Doxycycline 100 mg IV every 12 hours -Consult infectious disease, recs appreciated -Continue antibiotics as noted above -Vancomycin discontinued 03/12 -F/u cultures to be obtained at time of debridement -Consult podiatry, appreciate recs -s/p bedside debridement on 03/12 -Consult wound care nurse, appreciate recs -To follow up after debridement -Pain control with [place] as needed (2) Toxic effect of contact with stingray, accidental (unintentional), subsequent encounter ICD Codes: T63.511D - Toxic effect of contact with stingray, accidental ( unintentional), subsequent encounter Status: Acute Plan: See above plan (3) Macrocytosis without anemia ICD Codes: D75.89 - Other specified diseases of blood and blood-forming organs Plan: Likely chronic and related to alcohol use Folate and B12 both slightly low -Continue Multivitamin daily (4) Alcohol use ICD Codes: Z78.9 - Other specified health status Plan: Chronic, possibly heavier than patient originally notes given macrocytosis CIWA scores 24hr range: 0-9, current score of 3 -Discontinue CIWA today if scores remaining low (5) Chronic low back pain without sciatica ICD Codes: M54.5 - Low back pain; G89.29 - Other chronic pain Status: Chronic Plan: Chronic back pain without sciatica, patient reports taking opiates left over from a dental issue as well as obtaining some from some of his neighbors who had them left over from their own medical issues -[place] as above for his active foot wound -Follow-up with PCP (6) Hypertension ICD Codes: I10 - Essential (primary) hypertension Status: Acute Plan: Patient with elevated blood pressures overnight ranged 138-210/87-114. Patient with no past medical history hypertension. Clonidine PRN per protocol Continue to monitor vitals (7) FEN/PPX Plan: Fluids: Normal saline at 100 cc/h Electrolytes: Monitor and replace PRN Nutrition: Diet regular basic DVT: Lovenox 40 mg SQ daily CODE STATUS: Patient elects to be no code DNR Dispo: Pending clinical course (Henry Morelos MD, R1) Problem Qualifiers (1) Chronic low back pain without sciatica: Qualified Codes: M54.5 - Low back pain; G89.29 - Other chronic pain Henry Morelos MD, R1 March 13, 2018 09:34 Moon Rowland MD March 15, 2018 12:08
--- NOTE | 2018-03-13 11:21 | HHI.FF ---
Face to Face Verification Diagnosis: (1) Cellulitis of left foot Home Health Nursing Order: Wound care and dressing changes (flush and pack left ankle wound daily) I have seen patient Tao Almazan on 03/13/18. My clinical findings support the need for the requested home health care services because: Ltd mobility - disease progression Limited ability to care for self Infection w/ risk of complications I certify that my clinical findings support that this patient is homebound because: Unsteady gait/balance Unsafe to leave home unassisted [id number] bed/chair Manuela Mathias DPM March 13, 2018 11:21
--- NOTE | 2018-03-13 11:23 | PD.POD ---
Subjective Podiatric Problems s/p bedside ankle abscess I&D 03/12/18. Pt denying any n/v/f/h/c/sob. Pain score: 3 Past Med/Surg/Social History Social History Smoking Status: Current Every Day Smoker Objective Vital Signs Vital Signs Date Time Temp Pulse Resp B/P (MAP) Pulse Ox O2 Delivery O2 Flow Rate FiO2 03/13/18 00:00 98.0 99 16 156/96 (116) 93 03/12/18 20:00 98.3 93 16 210/114 (146) 95 03/12/18 16:05 18 03/12/18 15:23 98.8 93 20 159/87 (111) 95 03/12/18 12:14 97.7 99 20 138/88 (105) 95 Coded Allergies: No Known Allergies (Unverified Allergy, Unknown, 03/10/18) Exam-Podiatry Remarks Left ankle with decreased erythema and swelling. Mild serous drainage at dressing change but no purulence. Calf supple and non tender to compression. Assessment & Plan A/P 1)s/p bedside I&D 03/12/18 -daily packing changes -deep cxs obtain to guide outpt abx selection -cont iv abx -ok to d/c from podiatry standpoint once cxs allow for abx selection -will need HHC and wound care f/u on d/c, case management consulted Procedures Left leg was prepped with chlorhexadine and a proper time out was performed. 12mL of 1%lidocaine plain was injected just proximal to the abscess area. A small stab incision was created and probed with a hemostat. Approximately 20mL of serous and purulent drainage was expelled from the incision site and cultures were obtained. 1/2 sterile packing was placed inside the wound and proper bandaging was applied. The patient tolerated the procedure and the anesthetic well. Manuela Mathias DPM March 13, 2018 11:23
[2018-03-13 12:44] VITALS: BP 162/103; PULSE 97; RESP 20; TEMP 98.9; O2SAT 94
[2018-03-13] MEDS: LEVOFLOXACIN 750 MG TAB PO SCH (17:22)
[2018-03-13 20:00] VITALS: BP 180/106; PULSE 97; RESP 17; TEMP 98.8; O2SAT 95
[2018-03-13] MEDS: cloNIDine HCL 0.1 MG TAB PO PRN (21:05)
[2018-03-13] MEDS: DOXYCYCLINE HYCLATE 100 MG CAP PO SCH (21:05)
[2018-03-13] MEDS: ENOXAPARIN SODIUM 40 MG/0.4 ML SYRINGE SQ SCH (21:06)
[2018-03-14] VITALS: BP 141/79; PULSE 104; RESP 17; TEMP 98.8; O2SAT 94
[2018-03-14 04:00] VITALS: BP 155/84; PULSE 99; RESP 17; TEMP 98.8; O2SAT 95
[2018-03-14] MEDS: SODIUM CHLOR 0.9% 1000 ML INJ 1,000 ML IV SCH ×2 (05:44→15:00)
[2018-03-14] MEDS ORDERED: PHARMACY ORDERED LAB ONE (05:45)
[2018-03-14 07:57] VITALS: BP 149/86; PULSE 97; RESP 20; TEMP 99.1; O2SAT 99
[2018-03-14] MEDS: MULTIVITAMIN TAB PO SCH (08:19)
[2018-03-14] MEDS: DOCUSATE SODIUM 50 MG/SENNA 8.6 MG TAB PO SCH ×2 (08:19→20:26)
[2018-03-14] MEDS: ACETAMINOPHEN/HYDROcodone 325 MG/10 MG TAB PO PRN ×2 (08:23→18:23)
[2018-03-14] MEDS: DOXYCYCLINE HYCLATE 100 MG CAP PO SCH ×2 (08:23→20:25)
[2018-03-14] MEDS ORDERED: CALAMINE LOTION 180 APPLIC/180 ML BTL TOPICAL PRN (08:30)
[2018-03-14] MEDS ORDERED: diphenhydrAMINE HCL 50 MG CAP PO PRN (08:30)
[2018-03-14] MEDS: SODIUM CHLORIDE 0.9% FLUSH 10 ML FLUSH IV FLUSH SCH ×2 (09:00→20:26)
--- NOTE | 2018-03-14 10:27 | HHI.FPPN ---
Subjective Remarks Patient seen and examined this morning. Patient reports he continues to have pain in his foot however is largely unchanged from yesterday. He reports new chest pressure today. Denies chest pain, shortness of breath, pain in left arm or jaw, diaphoresis, lightheadedness, dizziness, change in vision. Had nausea and vomiting at time of exam. Not alleviated nor exacerbated by anything. No other complaints overnight. (Shoaib Sharma MD R1) Objective Vitals Vital Signs Date Time Temp Pulse Resp B/P (MAP) Pulse Ox O2 Delivery O2 Flow Rate FiO2 03/14/18 07:57 99.1 97 20 149/86 (107) 99 03/14/18 04:00 98.8 99 17 155/84 (107) 95 03/14/18 00:00 98.8 104 17 141/79 (99) 94 03/13/18 20:00 98.8 97 17 180/106 (130) 95 03/13/18 12:44 98.9 97 20 162/103 (122) 94 I/O 03/13/18 03/13/18 03/13/18 03/14/18 03/14/18 03/14/18 07:00 15:00 23:00 07:00 15:00 23:00 Output Total 350 ml 1100 ml Balance -350 ml -1100 ml Output Urine Total 350 ml 1100 ml # Voids 1 (Shoaib Sharma MD R1) Result Diagram: 03/13/1844103/13/18441 Objective Remarks GEN: WDWN overweight adult white male sitting up in bed vomited SKIN: cool and dry CARDIOVASCULAR: NRRR. Normal S1/S2. No MRG RESPIRATORY: CTAB. No crackles or wheezes. GASTROINTESTINAL: Abdomen soft, non-distended, non-tender. positive BS MUSCULOSKELETAL:Left foot wrapped in dressing, c/d/i. Pt able to move Left toes , Left toes well perfused. NEUROLOGICAL: Awake and alert. Moves all extremities without difficulty. Sensation intact over dermatomes of the left lower extremity. Normal speech. (Shoaib Sharma MD R1) A/P Assessment and Plan 57-year-old male with chronic low back pain presenting with: Discharge Planning Pending infectious disease discharge planning (Shoaib Sharma MD R1) Attending Attestation Case reviewed and discussed with the resident team. Agree with plan of care as discussed with me and documented in the resident note. (Moon Rowland MD) Problem List: (1) Cellulitis of left foot ICD Codes: L03.116 - Cellulitis of left lower limb Status: Acute Plan: Ulcerating wound caused by contact of the stingray in seawater source, improving on antibiotic therapy Wound culture from previous hospital visit growing Hafnia alvei and Photobacterium damselae (aka Vibrio damselae) Blood culture from previous hospital visit without growth Clinically stable, no evidence of sepsis MRI showing possible abscess Foot x-ray and MRI not suggestive of osteomyelitis Wound Cx gram negative obinna BCx NGTD Foot wound culture grew Delftia Acidovorans, sensitivities available. Awaiting additional infectious disease recommendations. -Broad-spectrum antibiotic coverage to include vibrio coverage -Levaquin 750 mg p.o. daily -Doxycycline 100 mg p.o. every 12 hours -Consult infectious disease, recs appreciated -Continue antibiotics as noted above -Vancomycin discontinued 03/12 -F/u cultures to be obtained at time of debridement -Consult podiatry, appreciate recs -s/p bedside debridement on 03/12 -Consult wound care nurse, appreciate recs -To follow up after debridement -Pain control with [place] as needed (2) Chest pressure ICD Codes: R07.89 - Other chest pain Plan: Patient reports new chest pressure 03/14/18 with associated nausea, vomiting. Denies other symptoms of AMI. -initial EKG without significant signs of acute MT -Follow-up serial EKG -Follow-up serial troponins (3) Toxic effect of contact with stingray, accidental (unintentional), subsequent encounter ICD Codes: T63.511D - Toxic effect of contact with stingray, accidental ( unintentional), subsequent encounter Status: Acute Plan: See above plan (4) Macrocytosis without anemia ICD Codes: D75.89 - Other specified diseases of blood and blood-forming organs Plan: Likely chronic and related to alcohol use Folate and B12 both slightly low -Continue Multivitamin daily (5) Alcohol use ICD Codes: Z78.9 - Other specified health status Plan: Chronic, possibly heavier than patient originally notes given macrocytosis CIWA scores 24hr range: 0-9, current score of 3 -Discontinue CIWA today if scores remaining low (6) Chronic low back pain without sciatica ICD Codes: M54.5 - Low back pain; G89.29 - Other chronic pain Status: Chronic Plan: Chronic back pain without sciatica, patient reports taking opiates left over from a dental issue as well as obtaining some from some of his neighbors who had them left over from their own medical issues -[place] as above for his active foot wound -Follow-up with PCP (7) Hypertension ICD Codes: I10 - Essential (primary) hypertension Status: Acute Plan: Patient with elevated blood pressures overnight. Patient with no past medical history hypertension. Clonidine PRN per protocol Continue to monitor vitals (8) FEN/PPX Plan: Fluids: Normal saline at 100 cc/h Electrolytes: Monitor and replace PRN Nutrition: Diet regular basic DVT: Lovenox 40 mg SQ daily CODE STATUS: Patient elects to be no code DNR Dispo: Pending clinical course (Shoaib Sharma MD R1) Problem Qualifiers (1) Chronic low back pain without sciatica: Qualified Codes: M54.5 - Low back pain; G89.29 - Other chronic pain Shoaib Sharma MD R1 March 14, 2018 10:27 Moon Rowland MD March 15, 2018 12:13
[2018-03-14 12:18] VITALS: BP 148/84; PULSE 92; RESP 20; TEMP 98.1; O2SAT 96
[2018-03-14 16:16] VITALS: BP 136/82; PULSE 89; RESP 20; TEMP 98.2; O2SAT 96
--- NOTE | 2018-03-14 17:04 | EKG ---
Date Performed: 03/14/2018 Time Performed: 08:34:11 PTAGE: 57 years EKG: Sinus rhythm POSSIBLE LEFT ATRIAL ENLARGEMENT BORDERLINE ECG NO PREVIOUS TRACING DOCTOR: Ana Hall Interpretating Date/Time 03/14/2018 17:02:22
[2018-03-14] MEDS: LEVOFLOXACIN 750 MG TAB PO SCH (18:00)
[2018-03-14 20:05] VITALS: BP 174/102; PULSE 88; RESP 20; TEMP 98.7; O2SAT 95
[2018-03-14] MEDS: cloNIDine HCL 0.1 MG TAB PO PRN (20:25)
[2018-03-14] MEDS: ENOXAPARIN SODIUM 40 MG/0.4 ML SYRINGE SQ SCH (20:26)
[2018-03-14 23:36] LABS: TROPONIN I LESS THAN 0.02 NG/ML (0.02-0.05)
[2018-03-15 00:10] VITALS: BP 162/89; PULSE 84; RESP 20; TEMP 99.3; O2SAT 95
[2018-03-15] MEDS: SODIUM CHLOR 0.9% 1000 ML INJ 1,000 ML IV SCH ×2 (01:05→11:00)
[2018-03-15 04:32] VITALS: BP 149/88; PULSE 78; RESP 20; TEMP 98.5; O2SAT 96
[2018-03-15 08:00] VITALS: BP 155/92; PULSE 84; RESP 19; TEMP 98.2; O2SAT 95
[2018-03-15 08:01] LABS: AUTOMATED NEUTROPHIL # 6.5 TH/MM3 (1.8-7.7); BASOPHIL % 0.2 % (0.0-2.0); EOSINOPHIL # 0.5 TH/MM3 (0-0.4); EOSINOPHIL % 4.9 % (0.0-4.0); HEMATOCRIT 44.1 % (39.0-51.0); HEMOGLOBIN 15.2 GM/DL (13.0-17.0); LYMPHOCYTE # 1.8 TH/MM3 (1.0-4.8); MEAN CELL VOLUME 106.2 FL (80.0-100.0); MEAN CORPUSCULAR HEMOGLOBIN 36.7 PG (27.0-34.0); MEAN CORPUSCULAR HGB CONC 34.5 % (32.0-36.0); MEAN PLATELET VOLUME 8.3 FL (7.0-11.0); MONO % 15.5 % (0.0-8.0); MONOCYTE # 1.6 TH/MM3 (0-0.9); NEUT % 62.4 % (16.0-70.0); PLATELET COUNT 254 TH/MM3 (150-450); RED BLOOD COUNT 4.15 MIL/MM3 (4.50-5.90); RED CELL DISTRIBUTION WIDTH 15.7 % (11.6-17.2); WHITE BLOOD COUNT 10.4 TH/MM3 (4.0-11.0)
[2018-03-15] MEDS: DOXYCYCLINE HYCLATE 100 MG CAP PO SCH (08:42)
[2018-03-15] MEDS: MULTIVITAMIN TAB PO SCH (08:42)
[2018-03-15] MEDS: DOCUSATE SODIUM 50 MG/SENNA 8.6 MG TAB PO SCH (08:47)
[2018-03-15] MEDS: SODIUM CHLORIDE 0.9% FLUSH 10 ML FLUSH IV FLUSH SCH (08:48)
--- NOTE | 2018-03-15 11:48 | HHI.FPPN ---
Subjective Remarks Patient seen and examined this morning. Patient reports he continues to have pain in his foot and is improved from yesterday. The chest pressure he experienced yesterday has resolved. This time he denies chest pain, shortness of breath, pain in left arm or jaw, diaphoresis, lightheadedness, dizziness, change in vision. (Shoaib Sharma MD R1) Objective Vitals Vital Signs Date Time Temp Pulse Resp B/P (MAP) Pulse Ox O2 Delivery O2 Flow Rate FiO2 03/15/18 08:00 98.2 84 19 155/92 (113) 95 03/15/18 04:32 98.5 78 20 149/88 (108) 96 03/15/18 00:10 99.3 84 20 162/89 (113) 95 03/14/18 20:05 98.7 88 20 174/102 (126) 95 03/14/18 16:16 98.2 89 20 136/82 (100) 96 03/14/18 12:18 98.1 92 20 148/84 (105) 96 I/O 03/14/18 03/14/18 03/14/18 03/15/18 03/15/18 03/15/18 06:59 14:59 22:59 06:59 14:59 22:59 Output Total 1100 ml Balance -1100 ml Output Urine Total 1100 ml # Voids 2 (Shoaib Sharma MD R1) Result Diagram: 03/15/18 0614 03/13/18 0442 Objective Remarks GEN: WDWN overweight adult white male sitting up in no acute distress SKIN: cool and dry CARDIOVASCULAR: NRRR. Normal S1/S2. No MRG RESPIRATORY: CTAB. No crackles or wheezes. GASTROINTESTINAL: Abdomen soft, non-distended, non-tender. positive BS MUSCULOSKELETAL:Left foot wrapped in dressing, c/d/i. Dressing removed and wound inspected. Small opening, eschar in place, no purulent drainage. Pt able to move Left toes, Left toes well perfused. NEUROLOGICAL: Awake and alert. Moves all extremities without difficulty. Sensation intact over dermatomes of the left lower extremity. Normal speech. (Shoaib Sharma MD R1) A/P Assessment and Plan 57-year-old male with chronic low back pain presenting with: Discharge Planning Pending infectious disease discharge planning (Shoaib Sharma MD R1) Attending Attestation Patient seen and examined. Case reviewed and discussed with the resident team. Agree with plan of care as discussed with me and documented in the resident note. (Moon Rowland MD) Problem List: (1) Cellulitis of left foot ICD Codes: L03.116 - Cellulitis of left lower limb Status: Acute Plan: Ulcerating wound caused by contact of the stingray in seawater source, improving on antibiotic therapy Wound culture from previous hospital visit growing Hafnia alvei and Photobacterium damselae (aka Vibrio damselae) Blood culture from previous hospital visit without growth Clinically stable, no evidence of sepsis MRI showing possible abscess Foot x-ray and MRI not suggestive of osteomyelitis Wound Cx gram negative obinna BCx NGTD Foot wound culture grew Delftia Acidovorans, sensitivities available. Awaiting additional infectious disease recommendations. -Broad-spectrum antibiotic coverage to include vibrio coverage -Levaquin 750 mg p.o. daily -Doxycycline 100 mg p.o. every 12 hours -Consult infectious disease, recs appreciated, awaiting new infectious disease recommendations -Continue antibiotics as noted above -Vancomycin discontinued 03/12 -F/u cultures to be obtained at time of debridement -Consult podiatry, appreciate recs -s/p bedside debridement on 03/12 -Clear for discharge, follow-up in 3-5 days -Consult wound care nurse, appreciate recs -Deferred to podiatry -Pain control with [place] as needed (2) Chest pressure ICD Codes: R07.89 - Other chest pain Status: Resolved Plan: Patient reports new chest pressure 03/14/18 with associated nausea, vomiting. Denies other symptoms of AMI. Currently resolved. -EKG is without signs of STEMI -Troponins within normal limits (3) Toxic effect of contact with stingray, accidental (unintentional), subsequent encounter ICD Codes: T63.511D - Toxic effect of contact with stingray, accidental ( unintentional), subsequent encounter Status: Acute Plan: See above plan (4) Macrocytosis without anemia ICD Codes: D75.89 - Other specified diseases of blood and blood-forming organs Plan: Likely chronic and related to alcohol use Folate and B12 both slightly low -Continue Multivitamin daily (5) Alcohol use ICD Codes: Z78.9 - Other specified health status Plan: Chronic, possibly heavier than patient originally notes given macrocytosis CIWA scores 24hr range: 0-9, current score of 3 -Discontinue CIWA today if scores remaining low (6) Chronic low back pain without sciatica ICD Codes: M54.5 - Low back pain; G89.29 - Other chronic pain Status: Chronic Plan: Chronic back pain without sciatica, patient reports taking opiates left over from a dental issue as well as obtaining some from some of his neighbors who had them left over from their own medical issues -[place] as above for his active foot wound -Follow-up with PCP (7) Hypertension ICD Codes: I10 - Essential (primary) hypertension Status: Acute Plan: Patient with elevated blood pressures overnight. Patient with no past medical history hypertension. Clonidine PRN per protocol Continue to monitor vitals (8) FEN/PPX Plan: Fluids: Normal saline at 100 cc/h Electrolytes: Monitor and replace PRN Nutrition: Diet regular basic DVT: Lovenox 40 mg SQ daily CODE STATUS: Patient elects to be no code DNR Dispo: Pending clinical course (Shoaib Sharma MD R1) Problem Qualifiers (1) Chronic low back pain without sciatica: Qualified Codes: M54.5 - Low back pain; G89.29 - Other chronic pain Shoaib Sharma MD R1 March 15, 2018 11:48 Moon Rowland MD March 15, 2018 16:09
[2018-03-15 12:00] VITALS: BP 152/90; PULSE 87; RESP 18; TEMP 97.9; O2SAT 94
[2018-03-15] MEDS: ACETAMINOPHEN/HYDROcodone 325 MG/10 MG TAB PO PRN ×2 (12:08→16:20)
--- NOTE | 2018-03-15 14:28 | HHI.IDPN ---
Subjective Subjective Remarks co mild pain in lower leg clx results noted. Vibrio is gone, now pseudomonas no fever sp b/s I+D Antibiotics levaquine doxy Allergies: Coded Allergies: No Known Allergies (Unverified Allergy, Unknown, 03/10/18) Objective . Vital Signs Date Time Temp Pulse Resp B/P (MAP) Pulse Ox O2 Delivery O2 Flow Rate FiO2 03/15/18 12:00 97.9 87 18 152/90 (110) 94 03/15/18 08:00 98.2 84 19 155/92 (113) 95 03/15/18 04:32 98.5 78 20 149/88 (108) 96 03/15/18 00:10 99.3 84 20 162/89 (113) 95 03/14/18 20:05 98.7 88 20 174/102 (126) 95 03/14/18 16:16 98.2 89 20 136/82 (100) 96 . Laboratory Tests Test 03/15/18 06:14 White Blood Count 10.4 TH/MM3 Red Blood Count 4.15 MIL/MM3 Hemoglobin 15.2 GM/DL Hematocrit 44.1 % Mean Corpuscular Volume 106.2 FL Mean Corpuscular Hemoglobin 36.7 PG Mean Corpuscular Hemoglobin Concent 34.5 % Red Cell Distribution Width 15.7 % Platelet Count 254 TH/MM3 Mean Platelet Volume 8.3 FL Neutrophils (%) (Auto) 62.4 % Lymphocytes (%) (Auto) 17.0 % Monocytes (%) (Auto) 15.5 % Eosinophils (%) (Auto) 4.9 % Basophils (%) (Auto) 0.2 % Neutrophils # (Auto) 6.5 TH/MM3 Lymphocytes # (Auto) 1.8 TH/MM3 Monocytes # (Auto) 1.6 TH/MM3 Eosinophils # (Auto) 0.5 TH/MM3 Basophils # (Auto) 0.0 TH/MM3 CBC Comment DIFF FINAL Differential Comment Laboratory Tests Test 03/15/18 06:14 Troponin I LESS THAN 0.02 NG/ML Microbiology Date/Time Source Procedure Growth Status 03/12/18 16:00 Wound Ankle Acid Fast Stain - Final NO ACID FAST BACILLI SEEN Resulted 03/12/18 16:00 Wound Ankle Mycobacterial Culture Pending Resulted Imaging Last Impressions Tibia/Fibula X-Ray 03/10/18 0192 Signed Impressions: Service Date/Time: Saturday, March 10, 2018 17:34 - CONCLUSION: Soft tissue swelling, negative for fracture or foreign body. Dayo Weiss MD FACR Foot X-Ray 03/10/18 1712 Signed Impressions: Service Date/Time: Saturday, March 10, 2018 17:30 - CONCLUSION: No acute bony findings. No foreign body. Deion Paul MD Foot MRI 03/10/18 0000 Signed Impressions: Service Date/Time: Saturday, March 10, 2018 19:07 - CONCLUSION: 1. The bony structures are intact with normal signal. 2. Edema with an elongated focal superficial fluid collection at the anterolateral ankle region superficial to the extensor tendons. Given the patient's history, an abscess needs to be considered. Deion Arteaga MD Physical Exam CONSTITUTIONAL/GENERAL: This is an adequately nourished patient, in no apparent distress. TUBES/LINES/DRAINS: SKIN: No jaundice, rashes, or lesions. Skin temperature appropriate. Not diaphoretic. MUSCULOSKELETAL: Extremities without clubbing, cyanosis, or edema. N L foot much less edematous and erythematous L foot top wound is shallow, with some cloudy serosang dc and crocker eschar NEUROLOGICAL: Awake and alert. Non focal PSYCHIATRIC: No obvious anxiety/depression. no apparent hallucinations or other psychotic thought process. Assessment & Plan Remarks Polimicrobial L foot infection, including Vibrio - small abscess present and ascending cellulitis - sp I+D by podiatris : 20 cc of pus expelled no vibrio currently , but growing psuedomonas All 3 bacteri isolated are S to levaquine improved on tx s/p stingray sting OK to dc Levaquine 750 x 14 days Monisha Li MD March 15, 2018 14:28
[2018-03-15] MEDS ORDERED: LEVA750T9 PO ×2 (14:29→16:15)
[2018-03-15] MEDS ORDERED: HYDR-3583 PO (15:51)
[2018-03-15] MEDS: LEVOFLOXACIN 750 MG TAB PO SCH (16:19)
--- NOTE | 2018-03-15 16:56 | HHI.DS ---
Discharge Summary Admission Date March 10, 2018 at 20:56 Discharge Date: March 15, 2018 Admitting Diagnosis Left foot cellulitis. Left leg cellulitis. (1) Cellulitis of left foot Diagnosis: Principal Plan: Ulcerating wound caused by contact of the stingray in seawater source, improving on antibiotic therapy Wound culture from previous hospital visit growing Hafnia alvei and Photobacterium damselae (aka Vibrio damselae) Blood culture from previous hospital visit without growth Clinically stable, no evidence of sepsis MRI showing possible abscess Foot x-ray and MRI not suggestive of osteomyelitis Wound Cx gram negative obinna BCx NGTD Foot wound culture grew Delftia Acidovorans, sensitivities available. Awaiting additional infectious disease recommendations. -Broad-spectrum antibiotic coverage to include vibrio coverage -Levaquin 750 mg p.o. daily -Doxycycline 100 mg p.o. every 12 hours -Consult infectious disease, recs appreciated, awaiting new infectious disease recommendations -Continue antibiotics as noted above -Vancomycin discontinued 03/12 -F/u cultures to be obtained at time of debridement -Consult podiatry, appreciate recs -s/p bedside debridement on 03/12 -Clear for discharge, follow-up in 3-5 days -Consult wound care nurse, appreciate recs -Deferred to podiatry -Pain control with [place] as needed ICD Codes: L03.116 - Cellulitis of left lower limb Status: Acute (2) Chest pressure Plan: Patient reports new chest pressure 03/14/18 with associated nausea, vomiting. Denies other symptoms of AMI. Currently resolved. 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 Folate and B12 both slightly low -Continue Multivitamin daily ICD Codes: D75.89 - Other specified diseases of blood and blood-forming organs (5) Alcohol use Plan: Chronic, possibly heavier than patient originally notes given macrocytosis CIWA scores 24hr range: 0-9, current score of 3 -Discontinue CIWA today if scores remaining low ICD Codes: Z78.9 - Other specified health status (6) Chronic low back pain without sciatica Plan: Chronic back pain without sciatica, patient reports taking opiates left over from a dental issue as well as obtaining some from some of his neighbors who had them left over from their own medical issues -[place] as above for his active foot wound -Follow-up with PCP ICD Codes: M54.5 - Low back pain; G89.29 - Other chronic pain Status: Chronic (7) Hypertension Plan: Patient with elevated blood pressures overnight. Patient with no past medical history hypertension. Clonidine PRN per protocol Continue to monitor vitals ICD Codes: I10 - Essential (primary) hypertension Status: Acute (8) FEN/PPX Plan: Fluids: Normal saline at 100 cc/h Electrolytes: Monitor and replace PRN Nutrition: Diet regular basic DVT: Lovenox 40 mg SQ daily CODE STATUS: Patient elects to be no code DNR Dispo: Pending clinical course Consultants ID, Podiatry Brief History 57-year-old male with history of chronic low back pain presenting for a wound to the left lower extremity sustained by stingray in sea water on 02/23. At that time, he came into the ER was admitted for antibiotic treatment. He was given IV antibiotics including Levaquin, doxycycline, and vancomycin, and wound cultures were obtained. However, he left AGAINST MEDICAL ADVICE. Initially, the wound got better, however the pain recurred and over the last 2 days he has noticed increased redness and swelling in addition to the pain in his left ankle. There has been mild drainage of purulent material from the wound. He has not had any fever or chills for the last several days. CBC/BMP: 03/15/18 0614 03/13/18 0442 Significant Findings Laboratory Tests Test 03/13/18 04:42 03/15/18 06:14 Red Blood Count 4.24 MIL/MM3 (4.50-5.90) 4.15 MIL/MM3 (4.50-5.90) Mean Corpuscular Volume 107.2 FL (80.0-100.0) 106.2 FL (80.0-100.0) Mean Corpuscular Hemoglobin 36.4 PG (27.0-34.0) 36.7 PG (27.0-34.0) Monocytes (%) (Auto) 11.4 % (0.0-8.0) 15.5 % (0.0-8.0) Monocytes # (Auto) 1.2 TH/MM3 (0-0.9) 1.6 TH/MM3 (0-0.9) Estimat Glomerular Filtration Rate 80 ML/MIN (>89) Troponin I LESS THAN 0.02 NG/ML LESS THAN 0.02 NG/ML Eosinophils (%) (Auto) 4.9 % (0.0-4.0) Eosinophils # (Auto) 0.5 TH/MM3 (0-0.4) Imaging Last Impressions Tibia/Fibula X-Ray 03/10/181711 Signed Impressions: Service Date/Time: Saturday, March 10, 2018 17:34 - CONCLUSION: Soft tissue swelling, negative for fracture or foreign body. Dayo Weiss MD FACR Foot X-Ray 03/10/181711 Signed Impressions: Service Date/Time: Saturday, March 10, 2018 17:30 - CONCLUSION: No acute bony findings. No foreign body. Deion Paul MD Foot MRI 03/10/18 0000 Signed Impressions: Service Date/Time: Saturday, March 10, 2018 19:07 - CONCLUSION: 1. The bony structures are intact with normal signal. 2. Edema with an elongated focal superficial fluid collection at the anterolateral ankle region superficial to the extensor tendons. Given the patient's history, an abscess needs to be considered. Deion Arteaga MD PE at Discharge GEN: WDWN overweight adult white male sitting up in no acute distress SKIN: cool and dry CARDIOVASCULAR: NRRR. Normal S1/S2. No MRG RESPIRATORY: CTAB. No crackles or wheezes. GASTROINTESTINAL: Abdomen soft, non-distended, non-tender. positive BS MUSCULOSKELETAL:Left foot wrapped in dressing, c/d/i. Dressing removed and wound inspected. Small opening, eschar in place, no purulent drainage. Pt able to move Left toes, Left toes well perfused. NEUROLOGICAL: Awake and alert. Moves all extremities without difficulty. Sensation intact over dermatomes of the left lower extremity. Normal speech. Hospital Course Patient is a 57 year old male admitted for left lower extremity cellulitis after injury by a stingray in sea water on 02/23. He was initially hospitalized for treatment with IV antibiotics, but left AMA. He returned to the hospital for the current admission on 03/10 and was found to have an ulcerating wound. wound cultures grew Hafnia alvei and Photobacterium damselae (aka Vibrio damselae) and blood cultures were negative. He was treated with IV vancomycin, levaquin, and doxycycline with clinical improvement. Infectious disease and podiatry were consulted. He underwent bedside I&D on 03/[address] Mathias and deep wound cultures were obtained. He will follow-up with Podiatry in 3-5 days. He is discharged home with home health wound care and dressing changes including flushing and packing the left ankle daily. He is to complete a 14 day course of Levaquin 750mg PO daily. Pt Condition on Discharge: Stable Discharge Disposition: Disch w/ Home Health Serv Discharge Instructions DIET: Follow Instructions for: Heart Healthy Diet Activities you can perform: Regular-No Restrictions Follow up Referrals: PCP Follow-up - 1 Week Podiatry - 3-5 Days with Manuela Mathias DPM New Medications: Levofloxacin (Levaquin) 750 Mg Tablet 750 MG PO DAILY for Infection for 14 Days, #14 TAB 0 Refills Hydrocodone/Acetaminophen (Hydrocodone-Acetamin 10-325 mg) 10 Mg-325 Mg Tablet 1 TAB PO Q4H PRN for PAIN SCALE 6 TO 10, #30 Kelly Diego MD R3 March 15, 2018 16:56
[2018-03-15 17:20] VITALS: RESP 17
--- NOTE | 2018-03-15 18:35 | EKG ---
Date Performed: 03/14/2018 Time Performed: 13:52:26 PTAGE: 57 years EKG: Sinus rhythm NORMAL ECG Since the PREVIOUS TRACING , no significant change noted PREVIOUS TRACIN03/14/2018 08.34 DOCTOR: Misha Li Interpretating Date/Time 03/15/2018 18:34:04
--- NOTE | 2018-03-15 18:36 | EKG ---
Date Performed: 03/14/2018 Time Performed: 20:11:47 PTAGE: 57 years EKG: Sinus rhythm NORMAL ECG Since the PREVIOUS TRACING , no significant change noted PREVIOUS TRACIN03/14/2018 13.52 DOCTOR: Misha Li Interpretating Date/Time 03/15/2018 18:34:17
[2018-03-17] MEDS ORDERED: [UNRECOGNIZED DRUG - OTHER] (13:21)
[2018-03-17] MEDS ORDERED: [UNRECOGNIZED DRUG - CODE] (13:21)
[2018-03-17] MEDS ORDERED: [UNRECOGNIZED DRUG - CODE] (13:21)
[2018-03-17] MEDS ORDERED: CURIMIS (13:21)
== END 2018-03-15 16:55 | disposition home health service (06) | DRG 603 ==
LOC: NEPE 16:52 → NEDA 19:56 → UNDOADMIN 19:56 → NEDA 20:38 → INTOOBSV 20:38 → OBSVTOIN 20:56 → NEPGCP 21:25 → N05A 03-12 18:12
PROVIDERS: ADMIT Family Medicine; ATTEND Family Medicine
DX: L03.116 Cellulitis of left lower limb (principal); I10 Essential (primary) hypertension; D75.89 Other specified diseases of blood and blood-forming organs; G89.29 Other chronic pain; F17.210 Nicotine dependence, cigarettes, uncomplicated; B96.89 Other specified bacterial agents as the cause of diseases classified elsewhere; M54.5 Low back pain; T63.511D Toxic effect of contact with stingray, accidental (unintentional), subsequent encounter; Z66 Do not resuscitate
CPT/HCPCS: 73590; 73630; 73720; 80048; 80053; 80202; 82607; 82746; 83605; 84484; 85025; 85610; 85730; 87015; 87040; 87070; 87077; 87116; 87186; 87205; 87206; 93005; 96365; 96375; A9579; J1956; J2270; J2405; J2765; J3370; J7030; J7050; Q0163